=== PATIENT | female | born 1965 | race Caucasian/White ===

== ENCOUNTER 2020-09-02 12:36 | Outpatient (REF) | payer OTHER, SELFPAY ==
[2020-09-02 13:09] LABS: COVID-19 Test Negative (Negative)
== END 2020-09-02 12:37 | disposition home or self-care (01) ==
LOC: HO.LAB 12:36
PROVIDERS: PCP Family Medicine; Visit Provider Internal Medicine
DX: Z20.828 Contact with and (suspected) exposure to other viral communicable diseases (principal)
CPT/HCPCS: 87635; C9803

== ENCOUNTER 2020-09-11 12:25 | Outpatient (REF) | payer OTHER, SELFPAY ==
[2020-09-11 14:04] LABS: COVID-19 Test Negative (Negative); IDNOW Serial# 55D5AD1C
== END 2020-09-11 12:26 | disposition home or self-care (01) ==
LOC: HO.EMPCOV 12:25
PROVIDERS: Visit Provider Internal Medicine
DX: Z20.828 Contact with and (suspected) exposure to other viral communicable diseases (principal)
CPT/HCPCS: 87635; C9803

== ENCOUNTER 2021-04-17 11:42 | Outpatient (REF) | payer BC, SELFPAY ==
[2021-04-17 12:30] LABS: COVID-19 Test Negative (Negative); IDNOW Serial# 9DD0AD1C
== END 2021-04-17 11:43 | disposition home or self-care (01) ==
LOC: HO.LAB 11:42
PROVIDERS: PCP Family Medicine; Referring Provider Internal Medicine; Visit Provider Internal Medicine
DX: Z20.822 Contact with and (suspected) exposure to COVID-19 (principal)
CPT/HCPCS: 36415; 87635

== ENCOUNTER 2023-04-25 12:50 | Outpatient (REF) | payer BC, SELFPAY ==
[2023-04-25 14:01] LABS: Influenza A PCR NEGATIVE (Negative); Influenza B PCR NEGATIVE (Negative); Resp Syncy Virus RNA Qual PCR NEGATIVE (Negative); SARS COV2 PCR INHOUSE NEGATIVE (Negative)
== END 2023-04-25 12:51 | disposition home or self-care (01) ==
LOC: HO.LAB 12:50
PROVIDERS: PCP Family Medicine; Visit Provider Internal Medicine
DX: R09.89 Other specified symptoms and signs involving the circulatory and respiratory systems (principal); Z20.822 Contact with and (suspected) exposure to COVID-19
CPT/HCPCS: 0241U

== ENCOUNTER 2025-08-28 10:01 | Outpatient (AMB) | payer BC, SELFPAY ==
--- OUTSIDE RECORDS SUMMARY | 2024-07-09 05:00 | XMS_ITS ---
Author Organization [facility] melissa Address [address] [place] [address] Care Team Providers Care Obstetric Assistant Name Role Phone Duffy Aline Primary Care Provider Priscila Deepdemetrius Jimenez [phone] Allergies Allergen (clinical drug ingredient) Drug/Non Drug Allergy documented on EMR Reaction Allergy Type Onset Date Status codeine Codeine rash Drug Allergy Active Results Component Value Reference Range Notes Spirometry Reviewed date: Interpretation: Performing Lab: Notes/Report: ekg Reviewed date:07/19/2024 12:30:43 AM Interpretation: Performing Lab: Notes/Report: Heart Rate 65 Systolic Blood Pressure 124 Diastolic Blood Pressure 86 WI Interval 146 QT Interval 396 QTc Interval 404 QRS Duration 80 PWave Sweetser 50 QrsWave Sweetser 52 TWave Sweetser 55 Mean Heart Rate 0 Diastolic Blood Pressure 0 Systolic Blood Pressure 0 MeanRR Interval 0 MinRR Interval 0 MaxRR Interval 0 NumBeats 0 REASON FOR VISIT CPE- fu, due for [...] Active Immunizations Vaccine Route Administration Date [facility] VACC 19+ PFIZER PURCHASED IM Intramuscular 07/09/2024 Administered FLUBLOK PURCHASED IM Intramuscular 07/09/2024 Administered Social History Social History Additional Details Category Social Info Options Details Social History 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8 degrees Fahrenheit 07/09/20 24 Blood pressure systolic 124 mm Hg 07/09/20 24 Blood pressure diastolic 86 mm Hg 024 Height 67.5 in 07/09/2024 Weight 160.7 lbs 07/09/2024 BMI 24.79 kg/m2 07/09/2024 Oximetry 99 07/09/2024 Encounters Encounter Location Date Provider Diagnosis [facility] [address] [place], [place] [address] 07/09/2024 Deep Francois Adult physical SMITHA L [...] Asthma Mild persistent, uncomplicated (ICD-10 - J45.30) Tani reassuring. Symptoms stable. Has Albuterol for [...] the CDC Committee on Immunization Practices. https://www.cdc.gov/vaccines/schedules/downl oads/adult/kxjks-xrplbcsa-kgnumjnh.pdf We encourage exercise as advised by the [...] per ortho team Asthma Mild persistent, uncomplicated Alverda reassuring. Symptoms stable. Has Albuterol for rescue [...] Details Follow Up: 1 Year, Reason: Provider Name:Aline Adams [facility], 10/02/2025 11:45:00 AM, [address], [place], [address], Provider Name:Deep allen, 02/05/2026 12:00:00 PM, [address] , [place], [address], Provider Name:Deep allen, 08/13/2026 01:30:00 PM, [address] [place], [address], History and Physical Notes * HPI (History of Present Illness) Category Sub-Category Detail Notes Category Not es Cardiology PALPITATIONS Previous EKG fr om 2010 was also boderline. Would like to recheck. Gastroenterology ABDOMINAL PAIN CONSTIPATION CHANGE IN BOWEL HABITS COLONOSCOPY 07/20/[address] Sands -no polyps. due 2029 Female Reproductive MAMMOGRAM 07/06/22 at [facility]- kathy monroy. Pending 11/25/24 Currently on higher dose of [...] A ge:59 Y S ex:Female Date:07/09/2024 C #:[id number] [address] [address] [place], [id number] Pcp:Aline Duffy [facility]'s [facility] Subjective: * Chief Complaints: * C PE- fuDue for tani??/masPHQ9: 0PAP: 06/23/21 (NILM, HPV neg)- due 2025MAMMO: 07/06/22- due, has scheduled 11/25/24COLONOSCOPY: 07/20HCP: verified with patientHearing screen: declinesIMMS: flu & [...] F emale Reproductive: c/o MAMMOGRAM 1 at [facility]- normal. P ending 11/25/24. c /o PAP [...] September [address] Jennifer Bhardwaj at [facility] Has been taking M eloxicam for pain [...] HAND: Ant Mai MD GI: GERD/IBS -- [facility] UROLOGY: Amisha Parson -> Bladder dysfunction (nerve damage after high forceps delivery) -- DERM: Jerzy Casey MD, Dysplastic nevi Asthma, mild persistent Dysthymic disorder Basal Cell CA nose (Sep 2023) Restless legs syndrome joint pains - RIGHT foot, LEFT hand/wrist (2023) menopause on HRT mammo (07/04/22 @ [facility]) BI-RADS 1 PAP SMEAR (06/23/2021): NILM, atrophy, HPV neg Colonoscopy (07/20/2020 at [facility]) - normal. Medical History Verified * Surgical History: abd laparoscopy for endometriosis 1996 umbilical hernia repair 2004 two dysplastic nevi Rectocele repair, sling procedure,paraneal repair-/. 10/06/08 PT at [facility] rehab in [place] 2times/wk Basal Cell removal on face - Dr Etienne 10/2023 Surgical History verified. * Hospitalization/Major Diagno stic Procedure: labor Normal Colonoscopy + EGD ([facility] in [facility]) 05/2006 Hospitalization Verified. * Family History: F ather: alive, (lives in [place])prostate cancer. YUNIEL. M other: alive, Crohns and Barretts, HTN (lives in [place] with Ruben's sister, previously [place]) ). dementia 2022. M aternal Grand Father: melanoma. S iblings: sister is horticultural farmer in [place],hx Hep C,hypothyroid. brother in [place] has GERD. C hildren: daughter has asthma, [...] adhd. * Social History: L alek: in [employer] w and 2 sons, 1 daughter. S moking Smart Form A re you a:: nonsmoker. S moking: no . A lcohol: About 3 drinks per wk-glass of wine. M arital Status: . C arnold: Daughter, sons. 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 R eligion: yarsanism. E xercise: yoga class 2-3xweek and home [...] Q RS Duration 80 * P Wave Sweetser 50 * Q rsWave Sweetser 52 * T Wave Sweetser 55 ?Imaging: Treadmill Stress Test Notes: EKG done today, reassuring. Will do stress test. ??3.?Pain foot, right? Notes: Pending RIGHT 1st MTP fusion on 09/03/24, plan per ortho team??4.?Asthma Mild persistent, uncomplicated?LAB: Spirometry Notes: Alverda reassuring. Symptoms stable. Has Albuterol for rescue [...] strongly encourages routine vaccinations as recommended by the[facility] Advisory Committee on Immunization Practices (ACIP). The [...] Procedure Codes: 9 6127 PHQ9 or ADHD [id number] SPIROMETRY,[id number] MOUTHPIECE FOR BREATHING [id number] EKG * Preventive Medicine: Counseling: D iet X . I njury prevention X . E xercise X . S exual practices X . D omestic violence X . S unscreen X . H ealth d iscuss perimenopausal signs and symptoms.? n o risk factors identified. * Follow Up: 1 Year Billing Information: * Visit Code: 80625 Preventive Care Est Pt. Age 40-64. 81533 Office Visit, Established Pt. * Procedure Codes: 25935 PHQ9 or ADHD scale. 37135 SPIROMETRY,COMPLETE. A4617 MOUTHPIECE FOR BREATHING TESTS. 68510 EKG. Care Plan Details* * Electronic signature of Jefferson Francois MD on 08/28/2025 at 11:49 AM EST Sign off status: Pending * Provider: Amisha Francois MD Date: Generated for Mary Anne hackett/Amaya/George on: 10/29/2024 11:49 AM EST
--- OUTSIDE RECORDS SUMMARY | 2025-01-23 06:45 | XMS_ITS ---
Author Organization [facility] melissa Address [address] [place] [address] Care Team Providers Care Warp Dresser Name Role Phone Adriana Duffyherine Primary Care Provider Deep Francois [phone] REASON FOR VISIT f/u meds (doxy) Encounters Encounter Location Date Provider Diagnosis [facility] [address] [place] [address] [place] [address] 01/23/2025 Deep Francois Plan Of Treatment Next Appt Details Provider Name:Aline Adams [facility], 10/02/2025 11:45:00 AM, [address] [place], [address], Provider Name:Deep allen, 02/05/2026 12:00:00 PM, [address] [place], [address], Provider Name:Deep allen, 08/13/2026 01:30:00 PM, [address] [place], [address], Progress Notes * FLORENTIN LARSONOB:1965 ([age] yo F)Acc No.[id number]:01/23/2025 Patient: Marylu SANCHEZSaul RUBEN Provider: Amisha Francois MD :1965 A ge:60 Y S ex:Female Date:01/23/2025 C HN#:[id number] Address:[address] [place] [address], [place] Pcp:Aline Duffy Patient's Default Facility:[facility] Subjective: * Chief Complaints: * F /u meds (doxy) * Electronic signature of Jefferson Francois MD on 08/28/2025 at 11:49 AM EST Sign off status: Pending * Provider: Amisha Francois MD Date: 0 01/23/2025 Generated for Mary Anne hackett/Amaya/Hilarioitting on: 1 10/29/2024 11:49 AM EST
--- OUTSIDE RECORDS SUMMARY | 2025-07-17 06:00 | XMS_ITS ---
Author Organization [facility] melissa Address [address] [place] [address] Care Team Providers Care Pleat Patternmaker Name Role Phone Aline Duffy Primary Care Provider [phone] Deep Francois [phone] REASON FOR VISIT CPE Encounters Encounter Location Date Provider Diagnosis [facility] [address] [address] 07/17/2025 Deep Francois Plan Of Treatment Next Appt Details Provider Name:Aline Adams [facility], 10/02/2025 11:45:00 AM, [address] [place], [address], Provider Name:Deep allen, 02/05/2026 12:00:00 PM, [address] [place], [address], Provider Name:Deep allen, 08/13/2026 01:30:00 PM, [address] [place], [address], Progress Notes * FLORENTIN LARSONOB:1965 ([age] yo F)Acc No.[id number]:07/17/2025 Progress Notes Patient: Marylu CORREA RUBEN Provider: Amisha Francois MD :1965 A ge:60 Y S ex:Female Date:07/17/2025 C HN#:[id number] Address:[address], [place] Pcp:Aline Duffy Patient's Default Facility:[facility] Subjective: * Chief Complaints: * C PE Care Plan Details* * Electronic signature of Jefferson Francois MD on 08/28/2025 at 11:49 AM EST Sign off status: Pending * Provider: Amisha Francois MD Date: 1 Generated for Mary Anne hackett/Amaya/George on: 10/29/2024 11:49 AM EST
--- NOTE | 2025-08-28 10:11 | A.OFFVIS_ITS ---
Vital Signs 08/28/25 10:15 Height 5 ft 8 in Weight 150 lb BMI 22.8 Intake Visit Reasons: Ingrown Rt Great Toenail Intake Note: Herminia is a 60 year old female who presents today as a new patient for an evaluation of her ingrown toe nail of the right hallux. Patient reports this has been going on for about 3 months and finds the site to be painful. Ingrown is located on the lateral border of the hallux. She has tried Epsom salt soaks and trimming the nail and has found no relief for her symptoms. Allergies codeine Allergy (Verified 08/28/25 10:11) Rash HPI Comments Details: The patient is a 60-year-old female with a past medical history as seen below presenting with pain to the right hallux associated with an ingrown toenail. She reports onset of symptoms a few months ago, characterized by discomfort described as something digging into the lateral border of her right hallux. The pain is exacerbated by activity and pressure, particularly from wearing shoes, even those designed to be more accommodating such as [employer] brand shoes. She describes the pain as mild to moderate, worsening upon palpation. The patient has denied any purulent discharge or drainage from the toe. The patient has attempted conservative treatment at home by trimming the nail and soaking it in Epsom salt and warm water, but these measures have not provided relief. She denies any recent pedal injuries. She denies any other pedal concerns. [facility] Medical History (Updated 08/31/25 @ 10:45 by Ivone Reis DPM) Pain of right great toe Cellulitis of great toe, right Nail disorder Ingrowing nail, right great toe Review of Systems Const Details: - Musculoskeletal: Reports pain localized to the lateral aspect of the right hallux. - Integumentary: Reports ingrown toenail to the right hallux. All systems reviewed & are unremarkable except as noted in HPI and below Physical Exam Vital Signs: BMI result Body Mass Index 22.8 Extrem Other: Right lower extremity focused physical exam: Derm: Increase incurvation noted to the lateral border of the right hallucal nail consistent with an ingrown toenail. No active drainage, purulence, or bleeding noted. Remaining toenails within normal limits. No maceration or hyperkeratotic areas noted. No erythema or discoloration noted. No clinical signs of infection noted. Vascular: DP/PT pulses palpable. Capillary refill time less than 3 seconds. Temperature gradient warm to warm. No varicosities noted. Mild edema noted to the right hallux. Neuro: Protective sensation is grossly intact. MSK: Pain on palpation to the lateral border of the right hallux due to ingrown nail. Range of motion of the forefoot, hindfoot, and ankle within normal limits. No crepitus or fluctuance noted. Mildly antalgic gait unassisted noted. No other gross abnormalities noted. Office Procedures AMB Debridement/Avulsion Podia Details: Procedure: Right hallux partial nail avulsion of the lateral border Cleansed right hallux with alcohol swab and injected 10cc of 2%lidocaine plain in a hallux block fashion. Next applied a tourniquet to the right hallux and then cleansed the right hallux with Betadine. Attention was drawn to the lateral border of the right hallux and a Ossian was utilized to free the offending nail border from the nail bed. Next an Wolof anvil was utilized to trim and cut the offending nail border and a hemostat was used to remove the offending nail border completely. A curette was used to ensure all spicules of the nail were re moved from the nail bed. Triple antibiotic ointment, 2 x 2 gauze, and Coban was then applied to the right hallux. Procedure was done with no incidents. Provided patient with aftercare instructions. [address]75[address] Partial/Total nail avulsion (1 nail) Procedure code (CPT) selection complete Office Meds lidocaine HCl 10 mg/mL (1 %) injection solution Performing Provider: Ivone Reis DPM Performing Location: [facility] Administered by: Ivone Reis DPM on 08/31/25 10:46 Dose Route Admin Location Dispensed Lot Number Expiration Date [facility] Manager Process Excellence 10 mL subcut 10 mL 3214-2277-43 Total Dispensed Waste 10 mL 0 % Comments: 2% lidocaine plain used Triple Antibiotic 3.5 mg-400 unit-5,000 unit topical ointment packet Performing Provider: Ivone Reis DPM Performing Location: [facility] Administered by: Ivone Reis DPM on 08/31/25 10:46 Dose Route Admin Location Dispensed Lot Number Expiration Date [facility] Manager [employer] Excellence 1 appl topical 1 appl [id number] PADAGIS povidone-iodine 10 % topical swab Performing Provider: Ivone Reis DPM Performing Location: [facility] Administered by: Ivone Reis DPM on 08/31/25 10:46 Dose Route Admin Location Dispensed Lot Number Expiration Date [facility] Manager Process Excellence 1 appl topical 1 appl [id number] [employer] IND [place]. ethyl chloride 100 % topical spray Performing Provider: Ivone Reis DPM Performing Location: [facility] Administered by: Ivone Reis DPM on 08/31/25 10:46 Dose Route Admin Location Dispensed Lot Number Expiration Date [facility] Manager Process Excellence 1 appl topical 116 mL [id number] [employer]. Assessment & Plan Assessment & Plan (1) Ingrowing nail, right great toe: Code(s): L60.0 - Ingrowing nail Category: Medical (2) Nail disorder: Code(s): L60.9 - Nail disorder, unspecified Category: Medical (3) Cellulitis of great toe, right: Code(s): L03.031 - Cellulitis of right toe Category: Medical (4) Pain of right great toe: Code(s): M79.674 - Pain in right toe(s) Category: Medical Plan Patient was informed and verbally consented to the use of an ambient scribe for clinic note documentation during this visit. I reviewed the diagnosis of an ingrown toenail on the lateral border of the right hallux with the patient and detailed the planned procedure of nail avulsion. Aftercare instructions were discussed, emphasizing keeping the initial bandage on for 24 hours, followed by daily Epsom salt water soaks, application of Neosporin, and rebandaging. We discussed the absence of activity restrictions, and the patient agreed to proceed. - Performed a partial nail avulsion on the lateral border of the right hallux to address the ingrown toenail. - Provided patient with aftercare instructions, instructional form provided. - Patient is to wear shoes with a wide toe box and avoid tight-fitting shoes. - Patient is to avoid barefoot walking. - Patient is to monitor for any signs of infection. RTC in 2 weeks. Orders: Orders AMB Debridement/Avulsion Podiatry 08/28/25 L03.031 - Cellulitis of right toe, L60.0 - Ingrowing nail, L60.9 - Nail disorder, unspecified, M79.674 - Pain in right toe(s) Medications: Discontinued penicillin V potassium Discontinued Reason: Patient no longer taking 500 mg PO TID 10 days 30 tabs 0RF cyclobenzaprine Discontinued Reason: Patient no longer taking 5 mg PO TID PRN 30 tabs 0RF muscle spasm Coding Level of Care Code New Pt Level 4 (38254) Diagnoses Ingrowing nail, right great toe L60.0 Nail disorder L60.9 Cellulitis of great toe, right L03.031 Pain of right great toe M79.674 CPT Codes Skin Debridement - CPT: 27927 Partial/Total nail avulsion (1 nail) ([id number]) Time Spent (min) 65 Comment 20 mins for procedure
[2025-08-28 10:15] VITALS: BMI 22.8
--- OUTSIDE RECORDS SUMMARY | 2025-08-28 11:49 | XMS_ITS | Encounter Summary ---
Author Organization [facility] Address [address] [facility] [address] [place] [address] Phone Care Team Providers Care Isolation Washer Name Role Phone Aline Duffy MD Unavailable [phone] Aline Duffy MD Primary Care Provider + Deep Francois MD Primary Care Provider + [phone] Encounter Details Date Type Department Care Team (Late st Contact Info) Description 06/20/2024 Procedure Pass [facility] - [address] [place] [address] Social History Tobacco Use Types Packs/Day Years Used Date Smoking Tobacco: Never Alcohol Use Standard Drinks/Week Comments Not Currently 0 (1 standard drink = 0.6 oz pur e alcohol) Education Answer Date Recorded Are you interested in more education? Not on zoe e 01/20/2023 Are you concerned about learning? Not on file 01/20/2023 No 01/20/2023 No 01/20/2023 Digital Access Answer Date Recorded No 02/20/2023 No 02/20/2023 Reliable internet access at home? Not on file 02/20/2023 Device with a working camera? Not on file Comments No Sex and Gender Information Value Date Recorded Sex Assigned at Female 07/04/2022 7:14 AM EDT Legal Sex Female 9:40 PM EDT Gender Identity Female 07/04/2022 7:14 AM EDT Sexual Orientation Not on file documented as of this encounter Plan of Treatment Not on file documented as of this encounter Visit Diagnoses Not on filedocumented in this encounter Care Teams Isolation Washer Relationship Specialty Start Date End Date Aline Duffy MD [address] [place] [phone] [email or web address] PCP - General Family Medicine 03/15/19 11/24/24 Deep Francois MD [address] [place] [phone] [email or web address] PCP - General Family Medicine 11/25/24 Aline Duffy MD [address] [place] [address] [email or web address] Assigned Provider 12/30/23 documented as of this encounter Additional Source Comments The information contained in this document represents components of the legal health record. It is not the complete legal health record.[facility]
--- OUTSIDE RECORDS SUMMARY | 2025-08-28 11:49 | XMS_ITS | Encounter Summary ---
Author Organization [facility] Address [address] [facility] [address] [place] [address] Phone Care Team Providers Care Vp Cardiovascular Service Line Name Role Phone Aline Duffy MD Unavailable [phone] Aline Duffy MD Primary Care Provider + Deep Francois MD Primary Care Provider + [phone] Encounter Details Date Type Department Care Team (Late st Contact Info) Description 06/29/2022 Transcribe Orders Virtual Department [address] [place] [address] Deep Francois MD [address] [place] [phone] Generalized abdominal or pelvic swelling or mass or lump (Primary Dx) Social History Tobacco Use Types Packs/Day Years Used Date Smoking Tobacco: Never Assessed Comments No Sex and Gender Information Value Date Recorded Sex Assigned at Female 07/04/2022 7:14 AM EDT Legal Sex Female 9:40 PM EDT Gender Identity Female 07/04/2022 7:14 AM EDT Sexual Orientation Not on file documented as of this encounter Plan of Treatment Not on file documented as of this encounter Results * US ABDOMEN COMPLETE (ADULT) (07/11/2022 10:22 AM EDT) Anatomical Region Laterality Modality Abdomen Ultrasound 07/11/2022 10:5 7 AM EDT Impressions 07/11/2022 10:58 AM EDT Unremarkable abdominal ultrasound. No aortic aneurysm visualized. No intra-abdominal masses are seen. Narrative 07/11/2022 10:58 AM EDT US ABDOMEN COMPLETE (ADULT) TECHNIQUE: Abdominal Ultrasound Complete. COMPARISON: None FINDINGS: Liver: Normal. No focal lesions. Main Portal Vein: Patent with normal direction of flow. Gallbladder: Normal. No gallstones or gallbladder wall thickening. Biliary: Normal. No intrahepatic or extrahepatic biliary ductal dilatation. The common bile duct measures 5 mm. Pancreas: Incompletely visualized. Spleen: Normal. No splenomegaly. Kidneys: Normal. No stones or hydronephrosis. Aorta: No aortic aneurysm visualized. IVC: Normal intrahepatic segment. Procedure Note Nir Diop MD, YAEL - 07/11/2022 US ABDOMEN COMPLETE (ADULT) TECHNIQUE: Abdominal Ultrasound Complete. COMPARISON: None FINDINGS: Liver: Normal. No focal lesions. Main Portal Vein: Patent with normal direction of flow. Gallbladder: Normal. No gallstones or gallbladder wall thickening. Biliary: Normal. No intrahepatic or extrahepatic biliary ductaldilatation. The common bile duct measures 5 mm. Pancreas: Incompletely visualized. Spleen: Normal. No splenomegaly. Kidneys: Normal. No stones or hydronephrosis. Aorta: No aortic aneurysm visualized. IVC: Normal intrahepatic segment. IMPRESSION: Unremarkable abdominal ultrasound. No aortic aneurysm visualized. No intra-abdominal masses are seen. Deep Francois MD IMG US ABDOMEN Final Result documented in this encounter Visit Diagnoses Diagnosis Generalized abdominal or pelvic swelling or mass or lump- Primary Abdominal or pelvic swelling, mass, or lump, generalized Generalized abdominal or pelvic swelling or mass or lump Abdominal or pelvic swelling, mass, or lump, generalized documented in this encounter Care Teams Vp Cardiovascular Service Line Relationship Specialty Start Date End Date Aline Duffy MD [address] [place] [phone] [email or web address] PCP - General Family Medicine 03/15/19 11/24/24 Deep Francois MD [address] [place] [phone] [email or web address] PCP - General Family Medicine 11/25/24 Aline Duffy MD [address] [place] [address] [email or web address] Insurance Assigned Provider 12/30/23 documented as of this encounter Additional Source Comments The information contained in this document represents components of the legal health record. It is not the complete legal health record.[facility]
--- OUTSIDE RECORDS SUMMARY | 2025-08-28 11:49 | XMS_ITS | Clinical Summary ---
Author Organization [facility] Address [address] [facility] [address] [place] [address] Phone Care Team Providers Care Sap Abap Developer Name Role Phone Aline Duffy MD Unavailable [phone] Deep Francois MD Primary Care Provider + [phone] Allergies Active Allergy Reactions Criticality Noted Date Comments Codeine Rash Low 11/14/2024 Medications acetaminophen (TYLENOL) 500 MG tablet Take 500 mg by mouth as needed. 09/03/2024 Active DULoxetine (CYMBALTA) 20 MG capsule Take 1 capsule by mouth every morning. 09/05/2024 Active levothyroxine (SYNTHROID, LEVOTHROID) 150 MCG tablet Take 150 mcg by mouth daily. Active montelukast (SINGULAIR) 10 mg tablet Take 10 mg by mouth every evening. Active progesterone (PROMETRIUM) 100 mg capsule Take 100 mg by mouth nightly at bedtime. Active estradioL (VIVELLE-DOT) 0.05 mg/[address] 1 patch onto the skin 2 (two) times a week. 10/06/2024 Active Active Problems No known active problems Family History Medical History Relation Comments BRCA 1/2 Mother Breast cancer Mother Breast cancer Sister Relation Status Comments Mother Sister Social History Tobacco Use Types Packs/Day Years Used Date Smoking Tobacco: Never Tobacco Cessation:Counseling Given: Not Answered Alcohol Use Standard Drinks/Week Comments Not Currently [...] AM EDT Sexual Orientation Not on file Last Filed Vital Signs Vital Sign Reading Time Taken Comments Blood Pressure 126/88 11/14/2024 1:22 PM EST Pulse 75 11/14/2024 1:22 PM EST Temperature - - Respiratory Rate - - Oxygen Saturation 99% 11/14/2024 1:22 PM EST Inhaled Oxygen Concentration - - Weight 73.5 kg (162 lb) 11/14/2024 1:22 PM EST Height 172.1 cm (5' 7.76 ) 11/14/2024 1:22 PM ES T Body Mass Index 24.81 11/14/2024 1:22 PM EST Plan of Treatment Health Maintenance Due Date Last Done Comments DEPRESSION SCREENING 1978 HEPATITIS C SCREENING 01/08/1984 HIV ONE-TIME SCREENING (18-6 5 YEARS) 01/08/1984 PAP SMEAR 1987 COLOGUARD 2011 FIT TEST 2011 FOBT 2011 SIGMOIDOSCOPY 2011 VIRTUAL COLONOSCOPY 2011 PNEUMOCOCCAL VACCINES (50+ years) (1 of 1 - PCV) 01/08/2016 ZOSTER VACCINES (1 of 2) 01/08/2016 TSH LEVEL 03/15/2025 03/15/2024, 11/02/2020 INFLUENZA VACCINE (#1) 2025 , 08/01/2017 COVID-19 VACCINE (3 - 2024-2 6 season) 2025 10/03/2020, 09/12/2020 MAMMOGRAM 11/25/2026 11/25/2024, 07/04/2022, 03/15/2019 LIPID PANEL 07/04/2028 07/04/2023 Adult Td,Tdap Booster 02/04/2029 02/04/2019 COLONOSCOPY 07/20/2030 11/17/2020 COLORECTAL CANCER SCREENING 07/20/2030 RSV VACCINE (1 - 1-dose 75+ series) 2041 SMOKING STATUS SCREENING (On ce After 26 Yrs) Completed 11/25/2024 HEPATITIS A VACCINES Aged Out No long er eligible based on patient's age to complete this topic HIB VACCINES Aged Out No longer eligi ble based on patient's age to complete this topic MENINGOCOCCAL VACCINES (ACWY) Aged Out No longer eligible based on patient's age to complete this topic MENINGOCOCCAL VACCINES (B) Aged Out N o longer eligible based on patient's age to complete this topic Medical Devices Not on file Procedures Procedure Name Priority Date/Time Associated Diagnosis Comments BI MAMMOGRAM SCREENING WITH TOMOSYNTHESIS WITH CAD (BILATERAL) Routine 11/25/2024 11:12 AM EST Breast screening TSH WITH REFLEX Routine 03/15/2024 1:04 PM EDT Generalized hyperhidrosis HM COLONOSCOPY FOR RESULT ENTRY ONLY Routine 11/17/2020 from Last 3 Months or Most Recently Relevant to Health Maintenance Results * BI MAMMOGRAM SCREENING WITH TOMOSYNTHESIS WITH CAD (BILATERAL) (11/25/2024 11:12 AM EST) Anatomical Region Laterality Modality Breast Left, Breast Right, Breast Bilateral Bila teral Mammography 11/27/2024 6:47 AM EST Impressions 11/27/2024 6:49 AM EST No mammographic evidence of malignancy in either breast. Annual screening mammography is recommended. BI-RADS 1 NEGATIVE The patient will be notified of the results and recommendations. Narrative 11/27/2024 6:49 AM EST BI MAMMOGRAM SCREENING WITH TOMOSYNTHESIS WITH CAD (BILATERAL) Additional patient information: Screening. COMPARISON: Comparison is made with relevant prior imaging. Breast composition: The breast tissue is heterogeneously dense which may obscure small masses. FINDINGS: No abnormal masses, suspicious calcifications, or other significant findings are identified mammographically in either breast. There has been no significant interval change. Procedure Note Leah Burns MD - 11/27/2024 BI MAMMOGRAM SCREENING WITH TOMOSYNTHESIS WITH CAD (BILATERAL) Additional patient information: Screening. COMPARISON: Comparison is made with relevant prior imaging. Breast composition: The breast tissue is heterogeneously dense which mayobscure small masses. FINDINGS: No abnormal masses, suspicious calcifications, or other significantfindings are identified mammographically in either breast. There has been no significant interval change. IMPRESSION: No mammographic evidence of malignancy in either breast. Annual screening mammography is recommended. BI-RADS 1 NEGATIVE The patient will be notified of the results and recommendations. us Deep Francois MD IMG MG EXAMS Final Result * TSH with reflex (03/15/2024 1:04 PM EDT) TSH 3.14 0.27 - 4.20 uIU/mL [facility] Blood 03/15/2024 1:04 PM EDT 03/15/2024 1:09 PM EDT [facility] BLOOD BKR ORDERABLES Final Result [facility] [address] [place], [place] [id number] * COLONOSCOPY FOR RESULT ENTRY ONLY (11/17/2020) Colonoscopy External us Historical Provider HEALTH MAINTENANCE Final Result from Last 3 Months or Most Recently Relevant to Health Maintenance Insurance [facility] [place] [id number] [facility] [address] [place] [id number] [place] [id number] Care Teams Sap Abap Developer Relationship Specialty Start Date End Date Deep Francois MD [address] [place] [phone] [email or web address] PCP - General Family Medicine 11/25/24 Aline Duffy MD [address] [place] [phone] Insurance Assigned Provider 12/30/23 Additional Source Comments The information contained in this document represents components of the legal health record. It is not the complete legal health record.[facility]
--- OUTSIDE RECORDS SUMMARY | 2025-08-28 11:49 | XMS_ITS | Encounter Summary ---
Author Organization [facility] Address [address] [facility] [address] [place] [address] Phone Care Team Providers Care Construction Technician Name Role Phone Aline Duffy MD Unavailable [phone] Aline Duffy MD Primary Care Provider + Deep Francois MD Primary Care Provider + [phone] Encounter Details Date Type Department Care Team (Late st Contact Info) Description 10/19/2020 Transcribe Orders Virtual Department [address] [place] [address] Aline Duffy MD [address] [place] [phone] Menorrhagia with regular cycle (Primary Dx) Social History Tobacco Use Types [...] as of this encounter Results * US PELVIS TRANSABDOMINAL PLUS TRANSVAGINAL (11/02/2020 2:35 PM EST) Anatomical Region Laterality Modality Pelvis, Uterus/Adnexa Ultrasound 11/02/2020 3:08 PM EST Impressions 11/02/2020 3:11 PM EST 1.Chronic uterine fibroid. 2.Normal ovaries and endometrium. Narrative 11/02/2020 3:11 PM EST COMPARISON: 08/06/2020. PELVIC & ENDOVAGINAL ULTRASOUND FINDINGS: Uterus: Uterus measures 7.5 x 3.2 x 7.2 cm. Endometrial thickness of 2 mm. No polyps identified. Chronic right subserosal uterine fibroid measuring 3.2 x 2.5 x 3 cm. Ovaries: Right ovarian volume of 4 cc and left ovarian volume of 2 cc. Normal ovarian perfusion. No adnexal masses. No free fluid in the cul-de-sac. Duplex scan of ovarian blood flow visualization with utilization of color and spectral doppler. Procedure Note Gaurav Reid MD - 11/02/2020 COMPARISON: 08/06/2020. PELVIC & ENDOVAGINAL ULTRASOUND FINDINGS: Uterus: Uterus measures 7.5 x 3.2 x 7.2 cm. Endometrial thickness of 2mm. No polyps identified. Chronic right subserosal uterine fibroidmeasuring 3.2 x 2.5 x 3 cm. Ovaries: Right ovarian volume of 4 cc and left ovarian volume of 2 cc.Normal ovarian perfusion. No adnexal masses. No free fluid in [id number]. Duplex scan of ovarian blood flow visualization withutilization of color and spectral doppler. IMPRESSION: 1.Chronic uterine fibroid. 2.Normal ovaries and endometrium. us Aline Duffy MD IMG US PELVIS Final Re sult documented in this encounter Visit Diagnoses Diagnosis Menorrhagia with regular cycle- Primary Menorrhagia with regular cycle documented in this encounter Care Teams Construction Technician Relationship Specialty Start Date End Date Aline Duffy MD [address] [place] [phone] PCP - General Family Medicine 03/15/19 11/24/24 Deep Francois MD [address] [place] [phone] [email or web address] PCP - General Family Medicine 11/25/24 Aline Duffy MD [address] [place] [phone] [email or web address] Insurance Assigned Provider 12/30/23 documented as of this encounter Additional Source Comments The information contained in this document represents components of the legal health record. It is not the complete legal health record.[facility]
--- OUTSIDE RECORDS SUMMARY | 2025-08-28 11:49 | XMS_ITS | Encounter Summary ---
Author Organization [facility] Address [address] [facility] [facility] [address] [place] [address] Phone Care Team Providers Care Faro Dealer Name Role Phone Aline Duffy MD Unavailable [phone] Aline Duffy MD Primary Care Provider + Deep Francois MD Primary Care Provider + [phone] Encounter Details Date Type Department Care Team (Late st Contact Info) Description 06/24/2022 Procedure Pass [address] [place] [address] Social History Tobacco Use Types Packs/Day Years Used Date Smoking Tobacco: Never Alcohol Use Standard Drinks/Week Comments Not Currently 0 (1 standard drink = 0.6 oz pur e alcohol) Comments No Sex and Gender Information Value Date Recorded Sex Assigned at Female 07/04/2022 7:14 AM EDT Legal Sex Female 9:40 PM EDT Gender Identity Female 07/04/2022 7:14 AM EDT Sexual Orientation Not on file documented as of this encounter Plan of Treatment Not on file documented as of this encounter Visit Diagnoses Not on filedocumented in this encounter Care Teams Faro Dealer Relationship Specialty Start Date End Date Aline Duffy MD [address] [place] [phone] [email or web address] PCP - General Family Medicine 03/15/19 11/24/24 Deep Francois MD [address] [place] [phone] [email or web address] PCP - General Family Medicine 11/25/24 Aline Duffy MD [address] [place] [phone] [email or web address] Insurance Assigned Provider 12/30/23 documented as of this encounter Additional Source Comments The information contained in this document represents components of the legal health record. It is not the complete legal health record.[facility]
--- OUTSIDE RECORDS SUMMARY | 2025-08-28 11:49 | XMS_ITS | Encounter Summary ---
Author Organization [facility] Address [address] [facility] [address] [place] [address] Phone Care Team Providers Care Cyber Forensics Analyst Name Role Phone Aline Duffy MD Unavailable [phone] Aline Duffy MD Primary Care Provider + Deep Francois MD Primary Care Provider [phone] Encounter Details Date Type Department Care Team (Late st Contact Info) Description 06/21/2021 Transcribe Orders [facility] [address] [place] [address] [place] [address] Deep Francois MD [address] [place] [phone] Social History Tobacco Use Types Packs/Day Years [...] on filedocumented in this encounter Care Teams Cyber Forensics Analyst Relationship Specialty Start Date End Date Aline Duffy MD [address] [place] [phone] PCP - General Family Medicine 03/15/19 11/24/24 Deep Francois MD [address] [place] [phone] [email or web address] PCP - General Family Medicine 11/25/24 Aline Duffy MD [address] [place] [phone] [email or web address] Insurance Assigned Provider 12/30/23 documented as of this encounter Additional Source Comments The information contained in this document represents components of the legal health record. It is not the complete legal health record.[facility]
--- OUTSIDE RECORDS SUMMARY | 2025-08-28 11:49 | XMS_ITS | Encounter Summary ---
Author Organization [facility] Address [address] [facility] [address] [place] [address] Phone Care Team Providers Care Handle Sewer Name Role Phone Aline Duffy MD Unavailable [phone] Aline Duffy MD Primary Care Provider + Deep Francois MD Primary Care Provider [phone] Encounter Details Date Type Department Care Team (Late st Contact Info) Description 06/17/2021 Transcribe Orders Virtual Department [address] [place] [address] Deep Francois MD [address] [place] [phone] [email or web address] Encounter for screening mammogram for malignant neoplasm of breast (Primary Dx) Social History Tobacco Use Types [...] documented as of this encounter Visit Diagnoses Diagnosis Encounter for screening mammogram for malignant neoplasm of breast- Primary documented in this encounter Care Teams Handle Sewer Relationship Specialty Start Date End Date Aline Duffy MD [address] [place] [address] [email or web address] PCP - General Family Medicine 03/15/19 11/24/24 Deep Francois MD [address] [place] [phone] [email or web address] PCP - General Family Medicine 11/25/24 Aline Duffy MD [address] [place] [phone] [email or web address] Insurance Assigned Provider 12/30/23 documented as of this encounter Additional Source Comments The information contained in this document represents components of the legal health record. It is not the complete legal health record.[facility]
--- OUTSIDE RECORDS SUMMARY | 2025-08-28 11:50 | XMS_ITS | Encounter Summary ---
Author Organization [facility] Address [address] [facility] [address] [place] [address] Phone Care Team Providers Care Monument Carver Name Role Phone Aline Duffy MD Unavailable [phone] Aline Duffy MD Primary Care Provider + Deep Francois MD Primary Care Provider + [phone] Encounter Details Date Type Department Care Team (Late st Contact Info) Description 06/20/2024 Transcribe Orders Virtual Department [address] [place] [address] Deep Francois MD [address] [place] [phone] [email or web address] Breast screening (Primary Dx) Social History Tobacco Use Types [...] documented as of this encounter Results * BI MAMMOGRAM SCREENING WITH TOMOSYNTHESIS [...] be notified of the results and recommendations. Deep Francois MD IMG MG EXAMS Final Result documented in this encounter Visit Diagnoses Diagnosis Breast screening- Primary Breast screening, unspecified Breast screening Breast screening, unspecified documented in this encounter Care Teams Monument Carver Relationship Specialty Start Date End Date Aline Duffy MD [address] [place] [phone] [email or web address] PCP - General Family Medicine 03/15/19 11/24/24 Deep Francois MD [address] [place] [phone] PCP - General Family Medicine 11/25/24 Aline Duffy MD [address] [place] [phone] [email or web address] Insurance Assigned Provider 12/30/23 documented as of this encounter Additional Source Comments The information contained in this document represents components of the legal health record. It is not the complete legal health record.[facility]
--- OUTSIDE RECORDS SUMMARY | 2025-08-28 11:50 | XMS_ITS | Patient Health Record ---
[facility] Organization [facility] melissa Address [address] [place] [address] Care Team Providers Care Clinical Physician Assistant Name Role Phone Aline Duffy Primary Care Provider [phone] Deep Francois Unavailable [phone] BeccaRock ramirez Unavailable [phone] Allergies Allergen (clinical drug ingredient) Drug/Non Drug Allergy documented on EMR Reaction Allergy Type Onset Date Status codeine Codeine rash Drug Allergy Active Results Component Value Reference Range Notes BI MAMMOGRAM SCREENING WITH TOMOSYNTHESIS WITH CAD (BILATERAL) Reviewed date:11/28/2024 04:58:23 PM Interpretation: Performing Lab: Notes/Report: BI MAMMOGRAM SCREENING WITH TOMOSYNTHESIS WITH CAD [...] be notified of the results and recommendations. Interpreted by: Leah Burns MD Signed by: Leah Burns MD 11/27/24 Final result No new concerns. Previous screening 07/04/2022 BI-RADS 1. [facility] Reason For Referral Reason Skin check Diagnosis 1 Encounter for screen ing for malignant neoplasm of skin (Z12.83) Referral Organization [facility] Pr actice Referring Provider First Name Deep Referring Provider Last Name Priscila Referring Provider Speciality [facility] Pra ctice Referred Provider Arun Zavala Referred Provider Specialty Dermatology General Notes Acacia Go 01/24 02:15:10 PM > referral faxed to: [phone], Authorization Status: CompleteReason: Decisioned, Decision: ApprovedReference#: [id number], Procedure Status: [id number]:Approved Clinical Notes Provider Name: Arun Rivera, Provider ID Number: , Provider UPIN: use Dr Casey's NPI, Provider , Provider Facility: , Provider Speciality: Dermatology, Address1: [address] [place] [address], Address2: [facility], Zip: [place], [address], , Appt. Date/Time: , Referral Priority Routine Reason mohs procedure Dr. Rafa Barbosa, Diagnosis 1 Basal cell carcinoma of skin of other part of trunk (C44.519) Referral Organization [facility] actice Referring Provider First Name Deep Referring Provider Last Name Adititiffany [facility] Referred Provider YULIYA SIMPSON General Notes Acacia Go 12/24 07:39:17 AM > referral faxed to: [phone], Authorization Status: CompleteReason: Decisioned, Decision: ApprovedReference#: [id number], Procedure Status: [id number]:Approved Clinical Notes Provider Name: [facility], Provider ID Number: , Provider UPIN: Reg/Sched, Provider NPI: , Provider Facility: , Provider Speciality: , Address1: [address] [place] [address], Address2: [address], [facility], Zip: [place], [address], , Appt. Date/Time: , Referral Priority Routine Reason For mohs surgery [facility] Dr. Glenis Etienne, Diagnosis 1 Basal cell carcinoma of skin of other part of trunk (C44.519) Referral Organization [facility] actice Referring Provider First Name Deep Referring Provider Last Name Priscila Referring Provider [facility] Referred Provider Specialty Dermatology General Notes Dr. Glenis Etienne, , [facility], [facility], [address] [place] [address], [address], [place], [place], phone: [phone], fax: [phone], Acacia Go 02/06/2025 08:32:50 AM > referral faxed to: [phone], Authorization Status: CompleteReason: Decisioned, Decision: ApprovedReference#: [id number], Procedure Status: [id number]:Approved Referral Priority Routine Reason For Ingrown Right Gr eat toenail Please fax back appropriate NPI needed to obtain an insurance auth Diagnosis 1 Ingrown toenail (L60 .0) Referral Organization [facility] Riaz robledo Referring Provider First Name Deep Referring Provider Last Name Priscila Referring Provider [facility] chuck Referred Provider [facility] Pod[facility], [place] Referred Provider Specialty Podiatry General Notes ingrown right great toenail and I would like to go to Dr. Ivone Reis at [facility] podiatry, Acacia Go 08/19/2025 08:59:37 AM EST > ref faxed to: [phone] Clinical Notes Name [facility] Podiatry, [facility], Address [address] [place] [address], [address], [place] [address], Referral Priority Routine Reason For a skin check zachary Gonzalez, , bCBS auth code: [id number] Diagnosis 1 Encounter for screen ing for malignant neoplasm of skin (Z12.83) Referral Organization [facility] Riaz actsvitlana Referring Provider First Name Deep Referring Provider Last Name Priscila Referring Provider [facility] ctsvitlana Referred Provider Deborah Finch atjake Referred Provider Specialty Dermatology General Notes Authorization Status : CompleteReason: Decisioned, Decision: ApprovedReference#: [id number], Procedure Status: [id number]:Approved, Acacia Go 08/26/2025 11:19:42 AM EST > ref faxed to: [phone] Referral Priority Routine Medications Medication SIG (Take, Route, Frequency, Duration) Notes Start Date End Date Status Cyclobenzaprine HCl 5 MG Tablet 1 tab(s) orally 3 times a day; Duration: 5 days prn Active Vitamin D 2000 IU 1 TAB PO QD Active Levothyroxine Sodium 150 MCG Tablet 1 tab(s) orally once a day; Duration: 90 days Active Singulair 10 MG Tablet 1 tablet Orally O nce a day in the evening; Duration: 90 days Active Diclofenac Sodium 1 % Gel as directed applied topically 4 times a day as needed; Duration: 30 days Not-Taking/PRN Estradiol 0.1 MG/GM Cream as directed Vaginal 3 times per week; Duration: 30 days 1 g nightly x 2 weeks, then 2-3 x per week 07/09/2024 Active Progesterone 100 MG Capsule 1 cap(s) orally once a day (at bedtime); Duration: 90 days Active DULoxetine HCl 20 MG Capsule Delayed Release Particles 1 capsule Orally Once a day; Duration: 90 days Active Estradiol 0.05 MG/24HR Patch Twice Weekly 1 patch to skin Transdermal Two times a Week; Duration: 84 days Active Immunizations Vaccine Route Administration Date Status Comme nts COVID HISTORY VACC 12+ PFIZER COMIRNATY Unknown 10/13/2023 Administered COVID HISTORY VACC 12+ PFIZER COMIRNATY Unknown 06/22/2025 Administered COVID VACC 19+ PFIZER PURCHASED IM Intramuscular 07/09/2024 Administered COVID Vacc BIVALENT 12+ Pfizer IM Intramuscular 06/22/2022 Administered Covid Vaccine Booster (Animeeple), History Unknown 07/03/2021 Administered COVID-19 Vaccine (Animeeple), History Unknown 09/12/2020 Administered COVID-19 Vaccine (Animeeple), History Unknown 10/03/2020 Administered Flu Vaccine; History Unknown 05/26/2010 Administered Flu Vaccine; History Unknown 07/13/2011 Administered Flu Vaccine; History Unknown 07/31/2012 Administered Flu Vaccine; History Unknown 06/25/2013 Administered FLUBLOK PURCHASED IM Intramuscular 07/20/2018 Administered FLUBLOK PURCHASED IM Intramuscular 06/22/2022 Administered FLUBLOK PURCHASED IM Intramuscular 07/09/2024 Administered FLUBLOK PURCHASED IM Intramuscular 07/31/2025 Administered FLULAVAL PURCHASED IM Intramuscular 06/17/2021 Administere d Fluzone P, PF, pre-filled IM Intramuscular 06/02/2016 Administered FLUZONE PURCHASED IM Intramuscular 07/04/2023 Administered Fluzone Vaccine; History IM Intramuscular 09/25/2008 Administered H1N1 injection, history IM Intramuscular 07/24/2009 Administered Hepatitis B Vaccine; History Unknown 08/30/1994 Administered Hepatitis B Vaccine; History Unknown 10/07/1994 Administered Hepatitis B Vaccine; History Unknown 02/28/1995 Administered MMR,state Unknown 05/05/1983 Administered PNEUMOVAX 23 PURCHASED IM Intramuscular 10/14/2010 Administered office purchase d pneumovax vaccine PREVNAR 20 PURCHASED IM Intramuscular 07/31/2025 Administered Refusal, Td/Tdap vaccine Unknown 10/20/2011 Administered is going to [facility] to see if it was given at her office, signed refusal Refusal, Td/Tdap vaccine Unknown 11/06/2013 Administered is going to [facility] to see if it was given at her office, signed refusal Shingrix, history Unknown 12/01/2022 Administered Shingrix, history Unknown 06/22/2025 Administered Td vaccine, state Unknown 02/23/1993 Administered Td vaccine, state Unknown 09/25/2001 Administered Tdap Adacel,purchased IM Intramuscular 09/23/2009 Administered TDAP history Unknown 01/28/2019 Administered Social History Social History Additional Details Category Social Info Options Details Social History 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 Alcohol: About 3 drinks p er wk-glass of wine Sexually active: no problems Exercise: yoga class 2-3xweek and home program, rides horse 3x weekly hikes 1-2x week or swims regularly Marital Status: Children: Daughter, sons Pets: Dogs: Confucianist: congregational lives in [facility] and and 2 sons, 1 daughter Section Notes: dog w seizure disorder healthy diet fun--likes swimming,hiking,horsebackriding enjoys reading dog w seizure disorder dog w seizure disorder dog w seizure disorder dog w seizure disorder dog w seizure disorder huge stressors dog w seizure disorder dog w seizure disorder dog w seizure disorder dog w seizure disorder dog w seizure disorder dog w seizure disorder dog w seizure disorder dog w seizure disorder dog w seizure disorder dog w seizure disorder dog w seizure disorder dog w seizure disorder dog w seizure disorder dog w seizure disorder huge stressors huge stressors huge stressors dog w seizure disorder dog w seizure disorder dog w seizure disorder dog w seizure disorder dog w seizure disorder dog w seizure disorder dog w seizure disorder healthy diet fun--likes swimming,hiking,horsebackriding --cant do those things now enjoys reading dog w seizure disorder dog w seizure disorder dog w seizure disorder dog w seizure disorder dog w seizure disorder dog w seizure disorder healthy diet fun--likes swimming,hiking,horsebackriding --cant do those things now enjoys reading healthy diet fun--likes swimming,hiking,horsebackriding --cant do those things now enjoys reading healthy diet fun--likes swimming,hiking,horsebackriding --cant do those things now enjoys reading healthy diet fun--likes swimming,hiking,horsebackriding --cant do those things now enjoys reading dog w seizure disorder healthy diet fun--likes swimming,hiking,horsebackriding --cant do those things now enjoys reading dog w seizure disorder healthy diet fun--likes swimming,hiking,horsebackriding --cant do those things now enjoys reading dog w seizure disorder dog w seizure disorder dog w seizure disorder dog w seizure disorder dog w seizure disorder dog w seizure disorder dog w seizure disorder dog w seizure disorder dog w seizure disorder dog w seizure disorder dog w seizure disorder dog w seizure disorder dog w seizure disorder dog w seizure disorder healthy diet fun--likes swimming,hiking,horsebackriding enjoys reading dog w seizure disorder dog w seizure disorder dog w seizure disorder dog w seizure disorder dog w seizure disorder dog w seizure disorder dog w seizure disorder healthy diet fun--likes swimming,hiking,horsebackriding enjoys reading dog w seizure disorder healthy diet fun--likes swimming,hiking,horsebackriding enjoys reading healthy diet fun--likes swimming,hiking,horsebackriding enjoys reading healthy diet fun--likes swimming,hiking,horsebackriding enjoys reading dog w seizure disorder healthy diet fun--likes swimming,hiking,horsebackriding enjoys reading huge stressors huge stressors healthy diet fun--likes swimming,hiking,horsebackriding enjoys reading healthy diet fun--likes swimming,hiking,horsebackriding enjoys reading healthy diet fun--likes swimming,hiking,horsebackriding enjoys reading healthy diet fun--likes swimming,hiking,horsebackriding enjoys reading healthy diet fun--likes swimming,hiking,horsebackriding enjoys reading healthy diet fun--likes swimming,hiking,horsebackriding enjoys reading healthy diet fun--likes swimming,hiking,horsebackriding enjoys reading healthy diet fun--likes swimming,hiking,horsebackriding --cant do those things now enjoys reading dog w seizure disorder healthy diet fun--likes swimming,hiking,horsebackriding --cant do those things now enjoys reading Problems Problem Type SNOMED Code ICD Code Onset Dates Problem Status W/U Status Risk Notes Problem Gastroesophageal reflux disease (874749026) GERD (K21.9) Active confirmed Problem Hypothyroidism (52264479) Hypothyroidism (E03.9) Active confirmed Problem Basal cell carcinoma of nose (561553954) Basal cell carcinoma of skin of nose (C44.311) Active confirmed Problem Basal cell carcinoma of truncal skin (127714691) Basal cell carcinoma of skin of other part of trunk (C44.519) Active confirmed Problem Hypothyroidism (72110114) Hypothyroidism other specified (E03.8) Active confirmed Problem Estrogen excess (10797487) Estrogen excess (E28.0) Active confirmed Problem Vitamin D deficiency (57340826) Vitamin D deficiency, unspecified (E55.9) Active confirmed Problem Cyclothymic disorder (96063123) Cyclothymic disorder (F34.0) Active confirmed Problem Mononeuropathy o f left upper limb, unspecified (G56.92) Active confirmed Problem Uncomplicated mild persistent asthma (802570796) Asthma Mild persistent, uncomplicated (J45.30) Active confirmed Problem Solitary sacroiliitis (062716793) Sacroiliitis, not elsewhere classified (M46.1) Active confirmed Problem Herniation of rectum into vagina (608102307) Rectocele (N81.6) Active confirmed Problem Endometrial hyperplasia (687857675) Endometrial hyperplasia, unspecified (N85.00) Active confirmed Problem Postmenopausal bleeding (03820904) Postmenopausal bleeding (N95.0) Active confirmed Problem Menopause (956253570) Menopausal and female climacteric states (N95.1) Active confirmed Problem Attention deficit hyperactivity disorder (902950201) ADHD, combined type (F90.2) Active confirmed Problem Urinary incontinence (593888951) Urinary incontinence, unspecified (R32) Active confirmed Problem Menorrhagia (776169182) Menorrhagia (N92.0) Active confirmed Problem Allergic rhinitis caused by pollen (55460960) Allergy environmental (J30.1) Active confirmed Problem Generalized anxiety disorder (25761179) Generalized anxiety disorder (F41.1) Active confirmed Problem Poor concentration (finding) (49459008) Concentration deficit (R41.840) Active confirmed Problem Constipation (59240936) Constipation NOS (K59.00) Active confirmed Problem Paresthesia (finding) (43487449) Paresthesias (R20.2) Active confirmed Problem Mild cognitive disorder (885290751) Mild cognitive impairment of uncertain or unknown etiology (G31.84) Active confirmed Vital Signs Temperature 98.0 degrees Fahrenheit 07/31/2025 Oximetry 97 07/31/2025 Blood pressure diastolic 78 mm Hg 07/31/2025 Height 67.5 in 07/31/2025 Blood pressure systolic 110 mm Hg 07/31/2025 Weight 169.4 lbs 07/31/2025 BMI 26.14 kg/m2 07/31/2025 Encounters Encounter Location Date Provider Diagnosis [place] [address] [place] [address] 12/16/2024 Rock Astudillo Basal cell carcinoma of skin of other part of trunk C44.519 [facility] [address] [place] [address] 02/26/2025 Deep Francois Basal cell carcinoma of skin of other part of trunk C44.519 ; Fatigue R53.83 ; ADHD, combined type F90.2 and Menopausal and female climacteric states N95.1 [facility] [address] [place] [address] 07/31/2025 Deep Francois Adult physical SMITHA L Z00.00 ; Encounter for immunization Z23 ; Encounter for screening for other disorder Z13.89 ; Encounter for screening for depression Z13.31 ; Encounter for other screening for malignant neoplasm of breast Z12.39 ; Encounter for screening for malignant neoplasm of colon Z12.11 ; Encounter for screening for malignant neoplasm of skin Z12.83 ; Disappearance and of family member Z63.4 ; Ingrown toenail L60.0 ; Concentration deficit R41.840 ; Xerostomia K11.7 ; Menopausal and female climacteric states N95.1 ; Fatigue R53.83 ; Hypothyroidism other specified E03.8 ; Basal cell carcinoma of skin of nose C44.311 and Vitamin D deficiency, unspecified E55.9 [place] [address] [place] [address] 10/04/2024 Deep Francois [place] [address] [place] [address] 10/30/2024 Deep Francois [place] [address] [place] [address] 11/29/2024 Deep Francois [place] [address] [place] [address] 12/11/2024 Deep Francois [place] [address] [place] [address] 12/16/2024 Aline Duffy [place] [address] [place] [address] 01/02/2025 Aline [place] [address] [place] [address] 06/02/2025 Aline Duffy [place] [address] [place] [address] 08/19/2025 Aline Duffy [place] [address] [place] [address] 12/30/2024 Deep Francois [place] [address] [place] [address] 02/05/2025 Deep Francois [place] [address] [place] [address] 02/18/2025 Deep Francois [place] [address] [place] [address] 03/07/2025 Deep Francois Pain Neck M54.2 [place] [address] [place] [address] 06/03/2025 Aline Duffy [place] [address] [place] [address] 08/17/2025 Deep Francois Assessments Encounter Date Diagnosis (ICD Code) Assessment Notes Treatment Notes Treatment Clinical Notes Section Notes 12/16/2024 Basal cell carcinoma of skin of other part of trunk (ICD-10 - C44.519) -[facility] obtained right medial superior chest shave biopsy 11/21/24. -Pathology impression: Basal cell carcinoma, superficial, nodular, and infiltrative types, extending to the tissue edges. -Has referral to [facility] for mohs procedure. Not booked yet. -Pt is s/p basal cell w/ mohs in 2023. -Cont plan per derm 02/26/2025 Basal cell carcinoma of skin of other part of trunk (ICD-10 - C44.519) - Continue regular skin exams every six months with [facility]. - Follow up with culinary specialist as needed for any new or changing lesions. 02/26/2025 Fatigue (ICD-10 - R53.83) - Continue with duloxetine 20 mg for now, providing 90-day supply with three refills. NO SI concerns. - If considering medication transition, recommend consultation with Iram or the new psychiatrist, Ivan, to discuss medication history and manage potential withdrawal symptoms. 07/31/2025 Encounter for immunization (ICD-10 - Z23) AFP strongly encourages routine vaccinations for adults and children. Encouraged consideration of recommended vaccine(s) for personal protection and community/herd immunity. Updated today 07/31/2025 Adult physical NORMAL (ICD-10 - Z00.00) Ruben 60 yo female here for annual wellness visit. Is in good health. We also discussed several chronic conditions today. She has been down in the last several weeks because of her father's recent illness and . We advise having an annual exam and visit to address age-appropriate screening tests, including screening for cardiovascular disease, cancers, mood disorders, sexually transmitted infections, and other appropriate conditions based upon age and personal risk factors. Cardiovascular risk assessment should occur periodically, utilizing lipid panel and AHA/ACC risk-based calculators, inflammatory markers when indicated, Lp(a) as a one-time test for all adults, and coronary calcium score if appropriate for individual stratification. We recommend routine vaccines for patients of all ages based on guidance from the major medical organizations and evidence-based research. Regular exercise helps lower the risk of almost all diseases, including cancer. Adults need at least 150 minutes of moderate physical activity or 75 minutes of vigorous activity each week. Any increase in activity is beneficial for health, especially for those under the target range. Adding/increasing strength training or incorporating HIIT workouts is important for bone health. Balancing training such as a Derik Chi practice has been demonstrated to significantly reduce the risk of falls. Stress management, healthy relationships, quality sleep, and supportive communities are important factors in contributing to success for individual wellness goals. 03/07/2025 Pain Neck (ICD-10 - M54.2) 02/26/2025 ADHD, combined type (ICD-10 - F90.2) see above 07/31/2025 Encounter for screening for other disorder (ICD-10 - Z13.89) Encouraged continued awareness of alcohol consumption patterns and potential health impacts. AUDIT-C negative. Alcohol use is directly linked to over 40 medical conditions, including cancer, heart disease, stroke, liver disease, digestive problems, and mental health conditions. 02/26/2025 Menopausal and female climacteric states (ICD-10 - N95.1) Stable on MRT. Continue current dosages. Here is a source of comprehensive information about menopause: https://www.acog. org/patient-resou rces/faqs/womens- health/the-menopa use-years. Modifications to your diet can impact menopausal symptoms. Phytoestrogens are plant based estrogens that have substantial impact on symptoms for many women. Sweet potatoes are an example of a food that is rich in phytoestrogens. You can learn more here: https://nutrition facts.org/video/s oy-phytoestrogens -vos-dbbtqzhqn-in t-flashes/ 07/31/2025 Encounter for screening for depression (ICD-10 - Z13.31) Screen reassuring today. Annual administration of the Patient Health Questionnaire-9 (PHQ-9) is performed to systematically screen for major depressive disorder (MDD) in adult patients. Exercising regularly is one of the best things you can do for your mental health. Exercise prompts the release of endorphins in your brain and reduces immune system responses that may worsen depression. Make sure that you're regularly connecting with friends and family. Consider trying a new hobby that involves group settings where you might meet new people. Avoid overcommitting to things. Practice mindfulness or meditation. Get plenty of sleep. Insomnia or insufficient sleep is significantly associated with depression. Eat a healthy diet rich in omega 3 fatty acids (like salmon and nuts) and avoid sugars, saturated fats, and processed foods. 07/31/2025 Encounter for other screening for malignant neoplasm of breast (ICD-10 - Z12.39) Is up to date. Recommend screening for BREAST CANCER per current guidelines for age and individualized risk assessment. The USPSTF recommends screening mammography at least every two years for women aged 40 to 74 years. Annual screening is advised for younger women, those at increased risk, those with prior abnormal screens or biopsies, and those on MHT. https://www.uspre ventiveservicesta skforce.org/uspst f/recommendation/ xvhdhz-wkaizx-ody eening. history imparts a reduction in cancer risk over the general population by 4.3% for every 12 months of . A whole food plant-based diet and avoidance of alcohol are additional modifiable risk reduction strategies. Regular exercise is also proven to reduce risk. 07/31/2025 Encounter for screening for malignant neoplasm of colon (ICD-10 - Z12.11) Is up to date. The [employer] advises screening for colorectal cancer (CRC) with FIT, flexible sigmoidoscopy, or colonoscopy starting at 45 years of age and continuing until at least 75 years of age. Tips to reduce the risk of colon cancer include: Eat a variety of fruits, vegetables and whole grains. Fruits, vegetables and whole grains contain vitamins, minerals, fiber and antioxidants, which may play a role in cancer prevention. Drink alcohol in moderation, if at all. Stop smoking if you currently smoke. Talk to your healthcare team if you need help quitting. Exercise most days of the week. Try to get at least 30 minutes of exercise on most days. If you've been inactive, start slowly and build up gradually to 30 minutes. Also, talk to your healthcare team before starting any exercise program. Maintain a healthy weight 07/31/2025 Encounter for screening for malignant neoplasm of skin (ICD-10 - Z12.83) Continue regular dermatology evaluations and maintain sun protection practices. Discussed the importance of monitoring for any new skin changes. You can help prevent skin cancer by protecting your skin from the sun's rays. To reduce the chance of getting skin cancer, you can: Stay out of the sun in the middle of the day (from 10 a.m. to 4 p.m.), Wear sunscreen and reapply it often, Wear a wide-brimmed hat, long-sleeved shirt, or long pants, Avoid tanning beds. Additional information here: www.aad.org/publi c/ftuf-smky-bkxkn r/mltip-fkmzp-hpv n-cancer/prevent/ dwy-hq-ewiknk-a-s unscreen, www.skincancerpre vention.org, www.skincancer.or g/index.php 07/31/2025 Disappearance and of family member (ICD-10 - Z63.4) Acknowledge the recent passing of her father and related stressors. Encourage maintaining supportive relationships during this period. 07/31/2025 Ingrown toenail (ICD-10 - L60.0) Ingrown toenail noted. Discussed treatment options, including warm water soaks several times a day to help reduce swelling and alleviate discomfort. May try applying a small amount of tea tree oil, or even Vicks VapoRub, as both might help address the possible underlying conditions that promote fungal infections. Allow nail to grow longer, clip nail straight across, and ensure proper footwear with an adequately wide toebox to prevent ingrown nail in the future. If symptoms persist, please call to schedule partial nail removal. Referral to Dr. Sharon Duffy for possible removal of the ingrown toenail. Discussed procedure options, including partial or full removal under a digital block. 07/31/2025 Concentration deficit (ICD-10 - R41.840) Discussed the situational nature of current mood and ADHD management strategies. Considering non-medication approaches, with ongoing evaluation of caffeine and hormone therapy effectiveness. 07/31/2025 Xerostomia (ICD-10 - K11.7) Continue using the prescription toothpaste for dry mouth. Monitor dental health for any further issues. 07/31/2025 Menopausal and female climacteric states (ICD-10 - N95.1) She is enjoying the benefit of MHT and would like to continue. Advised to get yearly breast cancer screening with CBE and mammograms. Refills sent. Notify us immediately of any vaginal bleeding. 07/31/2025 Fatigue (ICD-10 - R53.83) Effective sleep, exercise, adequate vitamin D, and sunlight all improve mood. Spending time doing things that you enjoy is vitally important to overall physical and mental wellbeing. Medication is an important adjunct. Please alert us if you experince any new side effects. Thryoid dysfunction and imbalance can contribute to fatigue and down mood. Do not take antidepressants with other substances, especially alcohol and/or marijuana as both are also depressants 07/31/2025 Hypothyroidism other specified (ICD-10 - E03.8) TSH within goal. Advised to continue current dose of levothyroxine. We will recheck at next visit. Overcorrection may lead to loss of bone density. Please ensure adequate Vit D3 and Calcium. Call with symptoms of overcorrection including palpitations, nervousness, sweats, sleep difficulties, diarrhea 07/31/2025 Basal cell carcinoma of skin of nose (ICD-10 - C44.311) Has completed treatment, follow-up plan per Derm 07/31/2025 Vitamin D deficiency, unspecified (ICD-10 - E55.9) Was low last summer. We recommend a supplement to all patients due to [place]. Please take Vitamin D3 2000 IU daily unless an alternate dose is indicated by lab values or suggested by your provider. Learn more at https://familydoc tor.org/vitamin-d /. Vitamin D has many important health benefits, including supporting a healthy immune system, strong bones, and a balanced mood 02/26/2025 Other Medical decision-making was shared with the patient, [...] outcomes through comprehensive and coordinated multidisciplinary care. 07/31/2025 Other Blood tests including thyroid function to be conducted at a convenient location, such as the [facility] in [place]. Medical decision-making was shared with the patient, [...] and coordinated multidisciplinary care. Plan Of Treatment Pending Test Test Name Order Date Ultrasound : Pelvis 12/20/2017 Ultrasound : Abdomen 06/22/2022 Mammogram 06/17/2021 Mammogram 06/15/2006 Mammogram 03/11/2008 Mammogram, left breast 04/26/2006 Mammogram, right breast 04/26/2006 Spirometry 03/06/2017 Colonoscopy 03/06/2017 ekg 03/19/2018 sandro 10/22/2012 sandro 10/31/2012 -PAP, cervical: HPV HYBRID C APTURE HIGH RISK DNA PROBE if diagnosis of ASCUS 11/29/2006 COMPLETE BLOOD COUNT 12/03/2007 X ray : Sinus series 11/24/2010 endometrial biopsy 08/06/2020 -UCG(UPREG) 08/06/2020 -erlichiosis 03/19/2011 PAP, cervical; HPV Hybrid Capture High R isk DNA Probe any Dx 06/17/2021 PAP, cervical; HPV Hybrid Capture High R isk DNA Probe any Dx 03/07/2018 PAP, cervical; HPV Hybrid Capture High R isk DNA Probe any Dx 03/02/2016 PAP, cervical; HPV Hybrid Capture High R isk DNA Probe any Dx 03/06/2017 Mammogram, routine annual screening 02/23 Mammogram, routine annual screening 04/2016 Mammogram, routine annual screening 09/26 Mammogram, routine annual screening 09/26 Mammogram, routine annual screening 02/2013 Mammogram, routine annual screening 02/23 Mammogram, routine annual screening 05/27 -PARVOVIRUS B-19 ANTIBODIES (IGG, IGM) 0 03/19/2011 -TSH 06/06/2012 -TSH 12/03/2007 FERRITIN 06/02/2015 IRON & TIBC 06/02/2015 HEMOGLOBIN A1C 09/30/2021 HEMOGLOBIN A1C 06/17/2021 COMPREHENSIVE METABOLIC PANL 06/17/2021 COMPREHENSIVE METABOLIC PANL 09/30/2021 COMPREHENSIVE METABOLIC PANL 02/17/2015 LIPID PANEL 02/17/2015 LIPID PANEL 09/30/2021 LIPID PANEL 06/17/2021 TSH WITH REFLEX TO T4 06/17/2021 TSH WITH REFLEX TO T4 01/31/2023 TSH WITH REFLEX TO T4 02/17/2015 TSH 10/03/2016 Vitamin D25 OH 06/17/2021 Vitamin D25 OH 03/21/2024 Vitamin D25 OH 09/30/2021 CBC 02/17/2015 CBC AUTO DIFF 06/17/2021 Ultrasound : Pelvis and Endovag 08/03/20 THYROID PANEL 07/13/2016 COMP MET PANEL 05/25/2020 Free T3 05/25/2020 Sedimentation rate (ESR) 05/25/2020 Kaitlin Screen Only, Serum 03/21/2024 CRP 05/25/2020 Free T4 05/25/2020 TSH 05/25/2020 CBC AND DIFFERENTIAL 05/25/2020 Treadmill Stress Test 07/09/2024 Vitamin D, [id number] 07/31/2025 Comprehensive Metabolic Panel ([id number], [facility]) 07/31/2025 Lipid Panel-[id number] 07/31/2025 CBC with Diff, Platelet, NLR-[id number] 02/2025 HSCRP 03/21/2024 HSCRP 07/31/2025 TSH reflex to T4 07/31/2025 Hemoglobin A1c 07/31/2025 Future Test Test Name Order Date -CRP, High Sensitivity (HSCRP) 0 COMPLETE BLOOD COUNT 10/07/2009 -LIPID PANEL 10/07/2009 -TSH 10/07/2009 COMPREHENSIVE METABOLIC PANL -40069 09/25 Urinalysis, Complete (5463 NOHO) 010 Next Appt Details Provider Name:Aline Haider [facility], 10/02/2025 11:45:00 AM, [address] [place], [address], Provider Name:Deep allen, 02/05/2026 12:00:00 PM, [address] [place], [address], Provider Name:Deep allen, 08/13/2026 01:30:00 PM, [address] [place], [address], Insurance Providers Payer Name Payer Address Payer Phone Subscriber Number Group Number Insured Name Patient Relationship to Insured Coverage Start Date Coverage End Date [facility] [address] [place] [address] [phone] [id number] RUBEN LARSON Self - patient is the insured Medical (General) History Medical History History ICD Code ORTHO: Jennifer Bhardwaj MD - RIGHT 1st MTP fusion 09/03/24 NEURO: Rafa Mancuso MD HAND: Ant Mai MD -> EMGs UE (07/27 06/18): b/l carpal tunnel GI: GERD/IBS - [place] UROLOGY: Kylie Cr M -> Bladder dysfunction (nerve damage after high forceps delivery) - DERM: Jerzy Casey MD/Fran r -> BCC + margins forehead and RIGHT mid upper back (May 2025), Basal Cell CA nose (Sep 2023), chest (Oct 2024), Dysplastic nevi Hypothyroid Asthma, mild persistent Dysthymic disorder Restless legs syndrome G25.81 joint pains - RIGHT foot, LEFT hand/wris t (2023) menopause on HRT mammo (07/04/22 @ [facility]) BI-RADS 1 PAP SMEAR (06/23/2021): NILM, atrophy, HP V neg Colonoscopy (07/[facility]/2020 at [facility] - normal . Surgical History Surgery Date(Month/Year) abd laparoscopy for endometriosis 1996 umbilical hernia repair 2004 two dysplastic nevi Rectocele repair, sling proc edure,paraneal repair-/. 10/06/08 PT at [facility] rehab in [place] 2times/wk Basal Cell removal on face - Dr Etienne 11/14 23 Hospitalization History Reason Date(Month/Year) Normal Colonoscopy + EGD ([facility]) 05/2006 labor
--- OUTSIDE RECORDS SUMMARY | 2025-08-28 11:51 | XMS_ITS | Encounter Summary ---
Author Organization [facility] Address [address] [place] [address] Phone Care Team Providers Care Hander In Name Role Phone Aline Duffy MD Unavailable [phone] Aline Duffy MD Primary Care Provider + Deep Francois MD Primary Care Provider + [phone] Encounter Details Date Type Department Care Team (Latest Contact Info) Description 06/22/2020 Transcribe Orders [facility] [address] [place] [address] Franca Richter PA-C [address], [address] [place] [address] [email or web address] Constipation, unspecified constipation type (Primary Dx) Social History Tobacco Use Types [...] documented as of this encounter Results * Immunoglobulin A (06/22/2020 10:54 AM EDT) IgA 167 70 - 400 mg/dL [facility] Blood 06/22/2020 10:5 4 AM EDT 06/22/2020 11:05 AM EDT us Franca Richter PA-C LAB BLOOD BKR ORDERABLES Final Result [facility] [address] [place] [address] * Tissue transglutaminase IgA (06/22/2020 10:54 AM EDT) TTG IGA ANTIBODY <1.2 <4.0 (Negative) U/mL [facility] [address] Blood 06/22/2020 10:5 4 AM EDT 06/22/2020 11:05 AM EDT us Franca WEATHERS-C LAB BLOOD BKR ORDERABLES Final Result [facility] [address] [place] [address] documented in this encounter Visit Diagnoses Diagnosis Constipation, unspecified constipation type- Primary documented in this encounter Care Teams Hander In Relationship Specialty Start Date End Date Aline Duffy MD [address] [place] [phone] PCP - General Family Medicine 03/15/19 11/24/24 Deep Francois MD [address] [place] [phone] PCP - General Family Medicine 11/25/24 Aline Duffy MD [address] [place] [phone] Insurance Assigned Provider 12/30/23 documented as of this encounter Additional Source Comments The information contained in this document represents components of the legal health record. It is not the complete legal health record.[facility]
--- OUTSIDE RECORDS SUMMARY | 2025-08-28 11:51 | XMS_ITS | Encounter Summary ---
Author Organization [facility] Address [address] [place] [phone] Phone Care Team Providers Care Denture Model Maker Name Role Phone Aline Duffy MD Unavailable [phone] Unknown, Unknown Primary Care Provider Aline Toribio MD Primary Care Provider + Deep Francois MD Primary Care Provider + [phone] Encounter Details Date Type Department Care Team (Late st Contact Info) Description 03/11/2019 Ancillary Orders Virtual Department [address] [place] [address] Aline Duffy MD [address] [place] [phone] [email or web address] Visit for screening mammogram Social History Tobacco Use Types Packs/Day Years Used Date Smoking Tobacco: Never Assessed Comments Unknown Sex and Gender Information Value Date Recorded Sex Assigned at Female 07/04/2022 7:14 AM EDT Legal Sex Female 9:40 PM EDT Gender Identity Female 07/04/2022 7:14 AM EDT Sexual Orientation Not on file documented as of this encounter Plan of Treatment Not on file documented as of this encounter Results * BI MAMMOGRAM SCREENING WITH TOMOSYNTHESIS WITH CAD (BILATERAL) (03/15/2019 10:59 AM EDT) Anatomical Region Laterality Modality Breast Left, Breast Right, Breast Bilateral Bila teral Mammography 03/15/2019 2:18 PM EDT Impressions 03/15/2019 2:20 PM EDT BILATERAL BREASTS: Negative, no evidence of malignancy. Normal interval follow- up is recommended in 12 months. Bi-RADS: BI-RADS CATEGORY: 1 - Negative. DENSITY: The breast tissue is heterogeneously dense, an appearance which lowers the sensitivity of mammography. POS - CDHMAMA Narrative 03/15/2019 2:20 PM EDT STUDY: Bilateral screening mammography with tomosynthesis and CAD TECHNIQUE: Bilateral full-field digital screening mammography is obtained and read in conjunction with computer-aided detection. Tomosynthesis as well as 2-D C view imaging were obtained. COMPARISON: Comparison made to multiple prior, most recent February 18, 2015, and most remote August 19, 2008. BREAST COMPOSITION: The breasts are heterogeneously dense, which may obscure small masses. BILATERAL BREASTS: No significant masses, calcifications or other abnormalities are seen. Procedure Note Alexander Ross MD - 03/15/2019 STUDY: Bilateral screening mammography with tomosynthesis and CAD TECHNIQUE: Bilateral full-field digital screening mammography is obtainedand read in conjunction with computer-aided detection. Tomosynthesis aswell as 2-D C view imaging were obtained. COMPARISON: Comparison made to multiple prior, most recent February 18, 2015,and most remote August 19, 2008. BREAST COMPOSITION: The breasts are heterogeneously dense, which mayobscure small masses. BILATERAL BREASTS: No significant masses, calcifications or otherabnormalities are seen. IMPRESSION: BILATERAL BREASTS: Negative, no evidence of malignancy. Normal intervalfollow-up is recommended in 12 months. Bi-RADS: BI-RADS CATEGORY: 1 - Negative. DENSITY: The breast tissue is heterogeneously dense, an appearance whichlowers the sensitivity of mammography. POS - CDHMAMA us Alnie Duffy MD IMG MG EXAMS Final Re sult documented in this encounter Visit Diagnoses Diagnosis Visit for screening mammogram Visit for screening mammogram documented in this encounter Care Teams Denture Model Maker Relationship Specialty Start Date End Date Unknown, Unknown, MD PCP - General 03/14/19 03/14/19 Aline Duffy MD [address] [place] [address] [email or web address] PCP - General Family Medicine 03/15/19 11/24/24 Deep Francois MD [address] [place] [phone] [email or web address] PCP - General Family Medicine 11/25/24 Aline Duffy MD [address] [place] [phone] [email or web address] Insurance Assigned Provider 12/30/23 documented as of this encounter Additional Source Comments The information contained in this document represents components of the legal health record. It is not the complete legal health record.[facility]
--- OUTSIDE RECORDS SUMMARY | 2025-08-28 11:51 | XMS_ITS | Encounter Summary ---
Author Organization [facility] Address [address] [place] [address] Phone Care Team Providers Care Solar Designer Name Role Phone Aline Duffy MD Unavailable [phone] Aline Duffy MD Primary Care Provider + Deep Francois MD Primary Care Provider + [phone] Encounter Details Date Type Department Care Team (Late st Contact Info) Description 08/05/2020 Ancillary Orders Virtual Department [address] [place] [address] Aline Duffy MD [address] [place] [phone] DUB (dysfunctional uterine bleeding); Post-menopausal bleeding Social History Tobacco Use Types Packs/Day Years [...] Results * US PELVIS TRANSABDOMINAL PLUS TRANSVAGINAL (08/06/2020 1:00 PM EST) Anatomical Region Laterality Modality Pelvis, Uterus/Adnexa Ultrasound 08/06/2020 1:09 PM EST Impressions 08/06/2020 1:13 PM EST Thickening of the endometrium for patient age without discrete mass identified. It is understood that the patient will be undergoing endometrial biopsy. Uterine fundal fibroid.. Ovaries not visualized on transabdominal or endovaginal technique. POS - [id number] Narrative 08/06/2020 1:13 PM EST COMPARISON: None FINDINGS: Transabdominal and endovaginal scanning was performed with transabdominal is limited due to the bladder not being adequately prepped. Uterus somewhat enlarged measuring 7.6 x 4.1 x 7.0 cm and displays homogeneous parenchymal echo-texture when allowing for a 3.5 x 2.3 x 2.3 cm fibroid in the right aspect of the fundus. Endometrial echocomplex appears thickened for patient age at 9 mm in width although no discrete mass or fluid collection were identified. Ovaries could not be visualized. Trace free fluid apparent in the cul-de-sac. Procedure Note Drew Plata MD - 08/06/2020 COMPARISON: None FINDINGS: Transabdominal and endovaginal scanning was performed with transabdominalis limited due to the bladder not being adequately prepped. Uterussomewhat enlarged measuring 7.6 x 4.1 x 7.0 cm and displays homogeneousparenchymal echo-texture when allowing for a 3.5 x 2.3 x 2.3 cm fibroid inthe right aspect of the fundus. Endometrial echocomplex appears thickenedfor patient age at 9 mm in width although no discrete mass or fluidcollection were identified. Ovaries could not be visualized. Trace free fluid apparent in [id number]. IMPRESSION: Thickening of the endometrium for patient age without discrete massidentified. It is understood that the patient will be undergoingendometrial biopsy. Uterine fundal fibroid.. Ovaries not visualized ontransabdominal or endovaginal technique. POS - [id number] Aline Duffy MD [facility] US PELVIS Final Re sult documented in this encounter Visit Diagnoses Diagnosis DUB (dysfunctional uterine bleeding) Other disorder of menstruation and other abnormal bleeding from female genital tract Post-menopausal bleeding Postmenopausal bleeding DUB (dysfunctional uterine bleeding) Other disorder of menstruation and other abnormal bleeding from female genital tract Post-menopausal bleeding Postmenopausal bleeding documented in this encounter Care Teams Solar Designer Relationship Specialty Start Date End Date Aline Duffy MD [address] [place] [id number] [email or web address] PCP - General Family Medicine 03/15/19 11/24/24 Deep Francois MD [address] [place] [phone] [email or web address] PCP - General Family Medicine 11/25/24 Aline Duffy MD [address] [place] [phone] [email or web address] Insurance Assigned Provider 12/30/23 documented as of this encounter Additional Source Comments The information contained in this document represents components of the legal health record. It is not the complete legal health record.[facility]
--- OUTSIDE RECORDS SUMMARY | 2025-08-28 11:51 | XMS_ITS | Encounter Summary ---
Author Organization [facility] Address [address] [place] [address] Phone Care Team Providers Care Assisted Living Director Name Role Phone Aline Duffy MD Unavailable [phone] Aline Duffy MD Primary Care Provider + Deep Francois MD Primary Care Provider [phone] Encounter Details Date Type Department Care Team (Late st Contact Info) Description 08/05/2020 Ancillary Orders Virtual Department [address] [place] [address] Aline Duffy MD [address] [place] [phone] DUB (dysfunctional uterine bleeding) Social History Tobacco Use Types Packs/Day Years [...] as of this encounter Visit Diagnoses Diagnosis DUB (dysfunctional uterine bleeding) Other disorder of menstruation and other abnormal bleeding from female genital tract documented in this encounter Care Teams Assisted Living Director Relationship Specialty Start Date End Date Aline Duffy MD [address] [place] [phone] [email or web address] PCP - General Family Medicine 03/15/19 11/24/24 Deep Francois MD [address] [place] [phone] [email or web address] PCP - General Family Medicine 11/25/24 Aline Duffy MD [address] [place] [phone] [email or web address] Insurance Assigned Provider 12/30/23 documented as of this encounter Additional Source Comments The information contained in this document represents components of the legal health record. It is not the complete legal health record.[facility]
== END 2025-08-28 11:05 | disposition home or self-care (01) ==
LOC: HO.HPODS 10:02
PROVIDERS: PCP Family Medicine; Visit Provider Student in an Organized Health Care Education/Training Program
DX: L60.0 Ingrowing nail (principal); L60.9 Nail disorder, unspecified; L03.031 Cellulitis of right toe; M79.674 Pain in right toe(s)
CPT/HCPCS: 11730; 99204

== ENCOUNTER → 2025-08-28 10:01 | Outpatient (BNVA) | payer BC, SELFPAY | PROVIDERS: PCP Family Medicine; Visit Provider Student in an Organized Health Care Education/Training Program | DX: L60.0 Ingrowing nail (principal); L60.9 Nail disorder, unspecified; L03.031 Cellulitis of right toe; M79.674 Pain in right toe(s) | CPT/HCPCS: 11730; J2003 ==

== ENCOUNTER 2025-09-11 14:30 | Outpatient (AMB) | payer BC, SELFPAY ==
--- OUTSIDE RECORDS SUMMARY | 2024-07-09 05:00 | XMS_ITS ---
Author Organization [facility] melissa Address [address] [place] [address] Care Team Providers Care Outside Event Sales Specialist Name Role Phone Duffy Aline Primary Care Provider [phone] Adititiffany Deepdemetrius Jimenez [phone] Allergies Allergen (clinical drug ingredient) Drug/Non Drug Allergy documented on EMR Reaction Allergy Type Onset Date Status codeine Codeine rash Drug Allergy Active Results Component Value Reference Range Notes ekg Reviewed date:07/19/2024 12:30:43 AM Interpretation: Performing Lab: Notes/Report: Heart Rate 65 Systolic Blood Pressure 124 Diastolic Blood Pressure 86 NE Interval 146 QT Interval 396 QTc Interval 404 QRS Duration 80 PWave Liberty 50 QrsWave Liberty 52 TWave Liberty 55 Mean Heart Rate 0 Diastolic Blood Pressure 0 Systolic Blood Pressure 0 MeanRR Interval 0 MinRR Interval 0 MaxRR Interval 0 NumBeats 0 Spirometry Reviewed date: Interpretation: Performing Lab: Notes/Report: REASON FOR VISIT CPE- fu, due for tani??/mas, PHQ9: 0, PAP: 06/23/21 (NILM, HPV neg)- due 2025, MAMMO: 07/06/22- due, has scheduled 11/25/24, COLONOSCOPY: 07/20 20- due 2029, HCP: verified with patient, Hearing screen:declines, IMMS: flu & covid (consents) Medications Medication SIG (Take, Route, Frequency, Duration) Notes Start Date End Date Status Cyclobenzaprine HCl 5 MG Tablet 1 tab(s) orally 3 times a day; Duration: 5 days prn Active Levothyroxine Sodium 150 MCG Tablet 1 tab(s) orally once a day; Duration: 90 days ok to fill immediately Active lamoTRIgine 100 MG Tablet 1 tab(s) orally once a day; Duration: 90 days Not-Taking/ PRN Diclofenac Sodium 1 % Gel as directed applied topically 4 times a day as needed; Duration: 30 days Active DULoxetine HCl 20 MG Capsule Delayed Release Particles TAKE 1 CAPSULE BY MOUTH EVERY DAY FOR 90 DAYS; Duration: 90 Active Singulair 10 MG Tablet TAKE 1 TABLET BY MOUTH EVERY EVENING; Duration: 90 days Active Progesterone 100 MG Capsule 1 cap(s) orally once a day (at bedtime); Duration: 30 days Active Vitamin D 2000 IU 1 TAB PO QD Active Meloxicam 15 MG Tablet 1 tablet Orally Once a day Active Estradiol 0.1 MG/GM Cream as directed Vaginal 3 times per week; Duration: 30 days 1 g nightly x 2 weeks, then 2-3 x per week 07/09/2024 Active Estradiol 0.05 MG/24HR Patch Twice Weekly 1 patch to skin Transdermal Two times a Week; Duration: 84 days Active Immunizations Vaccine Route Administration Date [facility]+ PFIZER PURCHASED IM Intramuscular 07/09/2024 Administered FLUBLOK PURCHASED IM Intramuscular 07/09/2024 Administered Social History Social History Additional Details Category Social Info Options Details Social History 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 Alcohol: About 3 drinks p er wk-glass of wine Sexually active: no problems Exercise: yoga class 2-3xweek and home program, rides horse 3x weekly hikes 1-2x week or swims regularly Marital Status: Children: Daughter, sons Pets: Dogs: Buddhist: advent lives in [facility] and and 2 sons, 1 daughter Section Notes: dog w seizure disorder Problems Problem Type SNOMED Code ICD Code Onset Dates Problem Status W/U Status Risk Notes Problem Uncomplicated mild persistent asthma (889979876) Asthma Mild persistent, uncomplicated (J45.30) Active confirmed Vital Signs Temperature 96.8 degrees Fahrenheit 07/09/20 24 Blood pressure systolic 124 mm Hg 07/09/20 24 Blood pressure diastolic 86 mm Hg 024 Height 67.5 in 07/09/2024 Weight 160.7 lbs 07/09/2024 BMI 24.79 kg/m2 07/09/2024 Oximetry 99 07/09/2024 Encounters Encounter Location Date Provider Diagnosis [facility] [address] [place], [place] [address] 07/09/2024 Deep Francois Adult physical SMITHA L Z00.00 ; Palpitations R00.2 ; Pain foot, right M79.671 ; Asthma Mild persistent, uncomplicated J45.30 ; Nocturia R35.1 ; Menopausal and female climacteric states N95.1 and Encounter for immunization Z23 Assessments Encounter Date Diagnosis (ICD Code) Assessment Notes Treatment Notes Treatment Clinical Notes Section Notes 07/09/2024 Adult physical NORMAL (ICD-10 - Z00.00) We advise having an annual exam and visit to address age appropriate screening tests including screening for cardiovascular disease, cancers, mood disorders, sexually transmitted infections, and other appropriate conditions based upon age and personal risk factors. We recommend routine vaccines for patient of all ages based on guidance from the CDC Committee on Immunization Practices. https://www.cdc. gov/vaccines/zheng edules/downloads /adult/adult-com bined-schedule.p df We encourage exercise as advised by the USPSTF/AAFP: Try to engage in 150 to 300 minutes of moderate physical activity each week. Any increase in activity is beneficial for health, especially for those under the target range. Adding/increasin g strength training or incorporating HIIT workouts is important for bone health. Stress management, healthy relationships, quality sleep, and supportive communities are important factors in contributing to success for individual wellness goals. 07/09/2024 Palpitations (ICD-10 - R00.2) EKG done today, reassuring. Will do stress test. 07/09/2024 Pain foot, right (ICD-10 - M79.671) Pending RIGHT 1st MTP fusion on 09/03/24, plan per ortho team 07/09/2024 Asthma Mild persistent, uncomplicated (ICD-10 - J45.30) [place] reassuring. Symptoms stable. Has Albuterol for rescue use. Understands role of ICS and to initiate or increase with URI or increased trigger exposure. Understands managing triggers. Will call with first sign/onset respiratory illness or increased coughing or shortness of breath. Flu vaccine and pneumonia vaccines up to date. Advise annual flu vaccination 07/09/2024 Nocturia (ICD-10 - R35.1) Advised timed voiding every two hours during the day to train the bladder and reduce nighttime urinary frequency. 07/09/2024 Menopausal and female climacteric states (ICD-10 - N95.1) Discussed adding vaginal estrogen therapy to address urinary frequency and vaginal dryness. Instructed apply it nightly for 2 weeks, then reduce usage to 1-3 times per week Genitourinary syndrome of menopause (GSM) is defined as a collection of symptoms and signs associated with a decrease in estrogen and other sex steroids involving changes to the labia majora/minora, clitoris, vestibule/introi tus, vagina, urethra, and bladder. Symptoms may include vulvovaginal dryness, burning, and irritation; sexual symptoms of lack of lubrication, discomfort or pain, and impaired function; and urinary symptoms of urgency, dysuria, and recurrent urinary tract infections 07/09/2024 Encounter for immunization (ICD-10 - Z23) Imms updated today. AFP strongly encourages routine vaccinations as recommended by the CDC Advisory Committee on Immunization Practices (ACIP). The current immunization schedule is readily available here: https://www.cdc. gov/vaccines/hcp /acip-recs/index .html 07/09/2024 Other Health maintenance flow sheet reveiwed and updated Medical decision-making was shared with the patient, and all questions were addressed. Please excuse any typos or grammatical errors. Contact our office for clarification if needed. We are the medical home for this patient. This visit is part of our ongoing, continuous relationship to manage and coordinate the patient's chronic and acute health conditions. which is essential for ensuring optimal health outcomes through comprehensive and coordinated multidisciplinary care. Plan Of Treatment Medication Medication Name Sig Start Date Stop Date Notes Estradiol 0.1 MG/GM Cream as directed Dayana dimas 3 times per week; Duration: 30 days 07/09/2024 Treatment Notes Assessment Notes Adult physical NORMAL We advise having an annual exam and visit to address age appropriate screening tests including screening for cardiovascular disease, cancers, mood disorders, sexually transmitted infections, and other appropriate conditions based upon age and personal risk factors. We recommend routine vaccines for patient of all ages based on guidance from the CDC Committee on Immunization Practices. https://www.cdc.gov/vaccines/schedules/downl oads/adult/tpxpm-avzqclwl-gdtfzyjp.pdf We encourage exercise as advised by the USPSTF/AAFP: Try to engage in 150 to 300 minutes of moderate physical activity each week. Any increase in activity is beneficial for health, especially for those under the target range. Adding/increasing strength training or incorporating HIIT workouts is important for bone health. Stress management, healthy relationships, quality sleep, and supportive communities are important factors in contributing to success for individual wellness goals. Palpitations EKG done today, reas suring. Will do stress test. Pain foot, right Pending RIGHT 1st MT P fusion on 09/03/24, plan per ortho team Asthma Mild persistent, uncomplicated Tani reassuring. Symptoms stable. Has Albuterol for rescue use. Understands role of ICS and to initiate or increase with URI or increased trigger exposure. Understands managing triggers. Will call with first sign/onset respiratory illness or increased coughing or shortness of breath. Flu vaccine and pneumonia vaccines up to date. Advise annual flu vaccination Nocturia Advised timed voidin g every two hours during the day to train the bladder and reduce nighttime urinary frequency. Menopausal and female climacteric states Discussed adding vaginal estrogen therapy to address urinary frequency and vaginal dryness. Instructed apply it nightly for 2 weeks, then reduce usage to 1-3 times per week Genitourinary syndrome of menopause (GSM) is defined as a collection of symptoms and signs associated with a decrease in estrogen and other sex steroids involving changes to the labia majora/minora, clitoris, vestibule/introitus, vagina, urethra, and bladder. Symptoms may include vulvovaginal dryness, burning, and irritation; sexual symptoms of lack of lubrication, discomfort or pain, and impaired function; and urinary symptoms of urgency, dysuria, and recurrent urinary tract infections Encounter for immunization Imms updated today. AFP strongly encourages routine vaccinations as recommended by the CDC Advisory Committee on Immunization Practices (ACIP). The current immunization schedule is readily available here: https://www.cdc.gov/vaccines/hcp/acip-recs/i ndex.html Other Health maintenance f low sheet reveiwed and updated Pending Test Test Name Order Date Treadmill Stress Test 07/09/2024 Next Appt Details Follow Up: 1 Year, Reason: Provider Name:Deep allen, 02/05/2026 12:00:00 PM, [address], [place], [id number], Provider Name:Deep allen, 08/13/2026 01:30:00 PM, [address], [place], [id number], History and Physical Notes * HPI (History of Present Illness) Category Sub-Category Detail Notes Category Not es Cardiology PALPITATIONS Previous EKG fr om 2010 was also boderline. Would like to recheck. Gastroenterology ABDOMINAL PAIN CONSTIPATION CHANGE IN BOWEL HABITS COLONOSCOPY 07/20/[address] Sands -no polyps. due 2029 Female Reproductive MAMMOGRAM 07/06/22 at [facility]- norm al. Pending 11/25/24 Currently on higher dose of estradiol patch and 100 mg progesterone, reports symptoms improvement, though still experiencing frequent awakenings at night. Reports urinary frequency at night, she wake up frequently to urinate. Has surgical sling. Not using vaginal estrogen. Notes some vaginal dryness PAP SMEAR 06/23/21 (NILM, HPV n eg)- due 2025 Depression Screening PHQ-9 Little inte rest or pleasure in doing things: Not at all Feeling down, depressed, or hopeless: Se veral days Trouble falling or staying a sleep, or sleeping too much: More than half the days Feeling tired or having little energy: N ot at all Poor appetite or overeating: Not at all Feeling bad about yourself-o r that you are a failure or have let yourself or your family down: Not at all Trouble concentrating on thi ngs, such as reading the newspaper or watching television: Nearly every day Moving or speaking so slowly that other people could have noticed. Or the opposite, being so fidgety or restless that you have been moving around a lot more than usual: Not at all Thoughts that you would be b tammi off , or of hurting yourself in some way: Not at all Total Score: 6 Intepretation: Mild Depression Physical Examination Category Sub-Category Detail Notes Section Note s HEENT Head: normocephalic Tympanic membrane(s): clear and flat gabbie aterally Mouth: moist mucus membrane s, no lesions. NECK General: supple Thyroid: Not enlarged Cervical lymph nodes: normal Muscles: normal Carotid bruit: none bilaterally JVD: none EXTREMITIES Edema: no Cyanosis: no Clubbing: no Tremors: no Pulses: 2+ bilateral BACK Spine: normal CHEST Shape and expansion: normal HEART PMI: normal Rhythm: regular Murmurs: no Heart sounds: normal Clicks: no ABDOMEN General: soft, no masses or hepatospl enomegaly, nontender, NABS NEUROLOGICAL cranial nerves Sensory: Normal Motor: Normal Coordination: Normal Reflexes: 2+ Babinski: Negative Gait: Normal MUSCULOSKELETAL General: normal strength and ROM n oted. GENITOURINARY - FEMALE General: deferred, pap not indicated SKIN Moles: benign appearing GENERAL General Appearence: well-appearing, alert and oriented LYMPH NODES Cervical: none Axillary: none LUNGS General: no wheezes or rales. good ai rflow throughout BREASTS General: no masses, tenderness, skin changes, or nipple abnormality Axilla: no lymphadenopathy EYES Conjunctiva: no conjunctival injections. PATITO, EOMI bilaterally Progress Notes * KAILA LARSONHDOB:1965 ([age] yo F)Acc No.[id number]:07/09/2024 Progress Notes Patient: RUBEN PEREZ Provider: Amisha Francois MD :1965 A ge:59 Y S ex:Female Date:07/09/2024 C #:[id number] Address:[address] [place] [address] , [facility], [id number] Pcp:Aline Duffy Patient's Default Facility:[facility] Subjective: * Chief Complaints: * C PE- fuDue for tani??/masPHQ9: 0PAP: 06/23/21 (NILM, HPV neg)- due 2025MAMMO: 07/06/22- due, has scheduled 11/25/24COLONOSCOPY: 07/20 20- due 2030HCP: verified with patientHearing screen: declinesIMMS: flu & covid (consents) * HPI: D epression Screening: PHQ-9 L ittle interest or pleasure in doing things?Not at all F eeling down, depressed, or hopeless S everal days T rouble falling or staying asleep, or sleeping too much M ore than half the days F eeling tired or having little energy N ot at all P oor appetite or overeating N ot at all F eeling bad about yourself-or that you are a failure or have let yourself or your family down N ot at all T rouble concentrating on things, such as reading the newspaper or watching television N early every day M oving or speaking so slowly that other people could have noticed. Or the opposite, being so fidgety or restless that you have been moving around a lot more than usual N ot at all T houghts that you would be better off , or of hurting yourself in some way N ot at all T otal Score 6 I ntepretation M ild Depression I nterim History: Ruben 59 y.o F presents today for annual physical. C ardiology: c/o PALPITATIONS. Previous EKG from 2010 was also boderline. Would like to recheck. P ulmonology: H/o asthma, well managed. Taking S ingulair year-round. N ot on inhalers. G astroenterology: c/o COLONOSCOPY [address] Sands-no polyps. due 2029.? Denies : CHANGE IN BOWEL HABITS. Denies : ABDOMINAL PAIN. Denies : CONSTIPATION. F emale Reproductive: c/o MAMMOGRAM 1 at [facility]- normal. P ending 11/25/24. c /o PAP SMEAR (NILM, HPV neg)- due 2025. Currently on higher dose of estradiol patch and 100 mg progesterone, reports symptoms improvement, though still experiencing frequent awakenings at night. Reports urinary frequency at night, she wake up frequently to urinate. Has surgical sling. Not using vaginal estrogen. Notes some vaginal dryness. M usculoskeletal: Has pending R foot fusion surgery on September [address] Jennifer Bhardwaj at [facility] Has been taking M eloxicam for pain management, which initially really healpful but has since become less effective. w orries about impact of increasing Meloxicam dosage on GI s/e Tried topical diclofenac, applies inconsistently Recommended to complete non-weight bearing for at least 6 weeks post-surgery Plans 4 weeks leave, then followed by 2 weeks telehealth. Has upcoming appt w neuro next month and scheduled for EMG. Past EMG showed borderline results. * ROS: S ee HPI. Other systems reviewed and noncontributory except for as noted above . * Medical History: ORTHO: Jennifer Bhardwaj MD - RIGHT 1st MTP fusion 09/03/24 NEURO: Rafa Mancuso MD Hypothyroid HAND: Ant Mai MD GI: GERD/IBS -- [facility] UROLOGY: Amisha Parson -> Bladder dysfunction (nerve damage after high forceps delivery) -- DERM: Jerzy Casey MD, Dysplastic nevi Asthma, mild persistent Dysthymic disorder Basal Cell CA nose (Sep 2023) Restless legs syndrome joint pains - RIGHT foot, LEFT hand/wrist (2023) menopause on HRT mammo (07/04/22 @ [facility]) BI-RADS 1 PAP SMEAR (06/23/2021): NILM, atrophy, HPV neg Colonoscopy (07/20/2020 at [facility]) - normal. Medical History Verified * Surgical History: abd laparoscopy for endometriosis 1996 umbilical hernia repair 2004 two dysplastic nevi Rectocele repair, sling procedure,paraneal repair-/. 10/06/08 PT at [facility] rehab in [place] 2times/wk Basal Cell removal on face - Dr Etienne 10/2023 Surgical History verified. * Hospitalization/Major Diagno stic Procedure: labor Normal Colonoscopy + EGD ([facility] in [facility]) 05/2006 Hospitalization Verified. * Family History: F ather: alive, (lives in [place])prostate cancer. YUNIEL. M other: alive, Crohns and Barretts, HTN (lives in [place] with Ruben's sister, previously [place]) ). dementia 2022. M aternal Grand Father: melanoma. S iblings: sister is onion farmer in [place],hx Hep C,hypothyroid. brother in [place] has GERD. C hildren: daughter has asthma, primary ciliary dyskinesia and eating disorder. 1 brother(s) , 1 sister(s) . 2 son(s) , 1 daughter(s) . . F amily History Verified.. sister breast cancer matggf suicide - gun brother bipolar-= depakote or lamotrigine- stable again sister: MS Mother: dementia diagnosed within last 2 yrs daughter auditory processing stuff- adhd. * Social History: L alek: in [place] w and 2 sons, 1 daughter. S moking Smart Form A re you a:: nonsmoker. S moking: no . A lcohol: About 3 drinks per wk-glass of wine. M arital Status: . C arnold: Daughter, sons. 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 R eligion: advent. E xercise: yoga class 2-3xweek and home program,rides horse 3x weekly hikes 1-2x week or swims regularly. S exually active: no problems. P ets: Dogs:. S ocial History Verified. d og w seizure disorder. * Medications: T akingMeloxicam 15 MG Tablet 1 tablet Orally Once a day Vitamin D 2000 IU 1 TAB PO QD Levothyroxine Sodium 150 MCG Tablet 1 tab(s) orally once a day , Notes to Pharmacist: ok to fill immediatelyCyclobenzaprine HCl 5 MG Tablet 1 tab(s) orally 3 times a day , Notes to Pharmacist: prnDiclofenac Sodium 1 % Gel as directed applied topically 4 times a day as needed DULoxetine HCl 20 MG Capsule Delayed Release Particles TAKE 1 CAPSULE BY MOUTH EVERY DAY FOR 90 DAYS Estradiol 0.05 MG/24HR Patch Twice Weekly 1 patch to skin Transdermal Two times a Week Singulair 10 MG Tablet TAKE 1 TABLET BY MOUTH EVERY EVENING Progesterone 100 MG Capsule 1 cap(s) orally once a day (at bedtime) Taking Meloxicam 15 MG Tablet 1 tablet Orally Once a day Taking Vitamin D 2000 IU 1 TAB PO QD Taking Levothyroxine Sodium 150 MCG Tablet 1 tab(s) orally once a day , Notes to Pharmacist: ok to fill immediatelyTaking Cyclobenzaprine HCl 5 MG Tablet 1 tab(s) orally 3 times a day , Notes to Pharmacist: prnTaking Diclofenac Sodium 1 % Gel as directed applied topically 4 times a day as needed Taking DULoxetine HCl 20 MG Capsule Delayed Release Particles TAKE 1 CAPSULE BY MOUTH EVERY DAY FOR 90 DAYS Taking Estradiol 0.05 MG/24HR Patch Twice Weekly 1 patch to skin Transdermal Two times a Week Taking Singulair 10 MG Tablet TAKE 1 TABLET BY MOUTH EVERY EVENING Taking Progesterone 100 MG Capsule 1 cap(s) orally once a day (at bedtime) Not-Taking/PRNlamoTRIgine 100 MG Tablet 1 tab(s) orally once a day Medication List reviewed and reconciled with the patientNot-Taking/PRN lamoTRIgine 100 MG Tablet 1 tab(s) orally once a day Medication List reviewed and reconciled with the patient * Allergies: C odeine: rashyesAllergies Verified. Objective: * Vitals: I nitials:mp, Ht: 67.5 in, Wt: 160.7 lbs, BMI: 24.79 Index, Temp: 96.8 F, Temp Route: T, HR: 75 /min, PulseOx: 99, BP: 124/86 mm Hg, PHQ-9: 6. * P ast Orders: Lab:LIPID PANEL * Collection Date 07/04/2023 06/22/2022 03/11/2019 Collection Time 11:37 AM 11:32 AM 10:48 AM Order Date 07/04/2023 06/22/2022 03/11/2019 LDL CHOLESTEROL, CALCULATED 70 (Ref Range: (0-130) MG/DL) 85 (Ref Range: (0-130) MG/DL) 70 (Ref Range: (0-130) MG/DL) CHOLESTEROL, TOTAL 157 (Ref Range: (<200) MG/DL) 170 (Ref Range: (<200) MG/DL) 161 (Ref Range: (<200) MG/DL) HDL CHOL 66 (Ref Range: (>39) MG/DL) 64 (Ref Range: (>39) MG/DL) 69 (Ref Range: (>39) MG/DL) NON HDL CHOLESTEROL (CALC) 91 (Ref Range: (<160) MG/DL) 106 (Ref Range: (<160) MG/DL) 92 (Ref Range: (<160) MG/DL) TRIGLYCERIDE 103 (Ref Range: (<150) MG/DL) 106 (Ref Range: (<150) MG/DL) 112 (Ref Range: (<150) MG/DL) * Physical Examination: G ENERAL: General Appearence: w ell-appearing, alert and oriented.? S KIN: Moles: b enign appearing. L YMPH NODES: Cervical: n one. Axillary: n one. E YES: Conjunctiva: n o conjunctival injections. PATITO, EOMI bilaterally. H EENT: Head: n ormocephalic. Tympanic membrane(s): c lear and flat bilaterally. Mouth: m oist mucus membranes, no lesions. . N CHIO: General: s upple. Thyroid: N ot enlarged. Cervical lymph nodes: n ormal. Muscles: n ormal. Carotid bruit: n one bilaterally. JVD: n one. B REASTS: General: n o masses, tenderness, skin changes, or nipple abnormality. Axilla: n o lymphadenopathy. C HEST: Shape and expansion: n ormal. H EART: PMI: n ormal. Rhythm: r egular. Murmurs: n o. Heart sounds: n ormal. Clicks: n o. L UNGS: General: n o wheezes or rales. good airflow throughout.? A BDOMEN: General: s oft, no masses or hepatosplenomegaly, nontender, NABS. B ACK: Spine: n ormal. G ENITOURINARY - FEMALE: General: d eferred, pap not indicated. E XTREMITIES: Edema: n o. Cyanosis: n o. Clubbing: n o. Tremors: n o. Pulses: 2 + bilateral. M USCULOSKELETAL: General: n ormal strength and ROM noted.. N EUROLOGICAL: Sensory: N ormal. Motor: N ormal. Coordination: N ormal. Reflexes: 2 +. Babinski: N egative. Gait: N ormal. Assessment: * Assessment: 1. A dult physical NORMAL - Z00.00 (Primary) 2 . P alpitations - R00.2 3 . P ain foot, right - M79.671 4 . A sthma Mild persistent, uncomplicated - J45.30 5 . N octuria - R35.1 6 . M enopausal and female climacteric states - N95.1 7 . E ncounter for immunization - Z23 ? Plan: * Treatment: 2. P alpitations L AB: ekg Value Reference Range H eart Rate 65 * S ystolic Blood Pressure 124 * D iastolic Blood Pressure 86 * P R Interval 146 * Q T Interval 396 * Q Tc Interval 404 * Q RS Duration 80 * P Wave Liberty 50 * Q rsWave [place] 52 * T Wave [place] 55 ?Imaging: Treadmill Stress Test Notes: EKG done today, reassuring. Will do stress test. ??3.?Pain foot, right? Notes: Pending RIGHT 1st MTP fusion on 09/03/24, plan per ortho team??4.?Asthma Mild persistent, uncomplicated?LAB: Spirometry Notes: [place] reassuring. Symptoms stable. Has Albuterol for rescue use. Understands role of ICS and to initiate or increase with URI or increased trigger exposure. Understands managing triggers. Will call with first sign/onset respiratory illness or increased coughing orshortness of breath. Flu vaccine and pneumonia vaccines up to date. Advise annual flu vaccination ?5.?Nocturia? Notes: Advised timed voiding every two hours during the day to train the bladder and reduce nighttime urinary frequency.??6.?Menopausal and female climacteric states? Start Estradiol Cream, 0.1 MG/GM, as directed, Vaginal, 3 times per week 1 g nightly x 2 weeks, then 2-3 x per week, 30 days, 42.5 g, Refills 5.?? Notes: Discussed adding?vaginal estrogen therapy?to address urinary frequency and vaginaldryness.? Instructed apply it nightly for 2 weeks, then reduce usage to 1-3 times per week Genitourinary syndrome of menopause (GSM) is defined as a collection of symptoms and signs associated with a decrease in estrogen and other sex steroids involving changes to the labia majora/minora, clitoris, vestibule/introitus, vagina, urethra, and bladder. Symptoms may include vulvovaginal dryness, burning, and irritation; sexual symptoms of lack of lubrication, discomfort or pain, and impaired function; and urinary symptoms of urgency, dysuria, and recurrent urinary tract infections ??7.?Encounter for immunization? Notes: Imms updated today.? AFP strongly encourages routine vaccinations as recommended by the[facility] Advisory Committee on Immunization Practices (ACIP). The current immunization schedule is readily available here: https://www.cdc.gov/vaccines/hcp/acip-recs/index.html??8.?Others? Notes: Health maintenance flow sheet reveiwed and updated?? Clinical Notes: Medical decision-making was shared with the patient, and all questions were addressed. Please excuse any typos or grammatical errors. Contact our office for clarification if needed. ?We are the medical home for this patient. This visit is part of our ongoing, continuous relationship to manage and coordinate the patient's chronic and acute health conditions. which is essential for ensuring optimal health outcomes through comprehensive and coordinated multidisciplinary care. ?? * Immunizations: COVID VACC 19+ PFIZER PURCHASED : 0.3 mL (Route: Intramuscular) given by Salima Newton MA on Right Deltoid (Encounter for immunization) FLUBLOK PURCHASED : 0.5 mL (Route: Intramuscular) given by Salima Newton MA on Right Deltoid (Encounter for immunization) * Procedure Codes: 9 6127 PHQ9 or ADHD [id number] SPIROMETRY,[id number] MOUTHPIECE FOR BREATHING [id number] EKG * Preventive Medicine: Counseling: D iet X . I njury prevention X . E xercise X . S exual practices X . D omestic violence X . S unscreen X . H ealth d iscuss perimenopausal signs and symptoms.? n o risk factors identified. * Follow Up: 1 Year Billing Information: * Visit Code: 22419 Preventive Care Est Pt. Age 40-64. 41984 Office Visit, Established Pt. * Procedure Codes: 99983 PHQ9 or ADHD scale. 02875 SPIROMETRY,COMPLETE. A4617 MOUTHPIECE FOR BREATHING TESTS. 00569 EKG. Care Plan Details* * Electronic signature of Jefferson Francois MD on 09/11/2025 at 06:39 PM EST Sign off status: Pending * Provider: Amisha Francois MD Date: Generated for Mary Anne hackett/Amaya/George on: 11/12/2024 06:39 PM EST
--- OUTSIDE RECORDS SUMMARY | 2025-01-23 06:45 | XMS_ITS ---
Author Organization [facility] Address [address] [place] [address] Care Team Providers Care Tick Sewer Name Role Phone Aline Duffy Primary Care Provider [phone] Deep Francois [phone] REASON FOR VISIT f/u meds (doxy) Encounters Encounter Location Date Provider Diagnosis [facility] [address] [place] [address] 01/23/2025 Deep Francois Plan Of Treatment Next Appt Details Provider Name:Deep allen, 02/05/2026 12:00:00 PM, [address] [place], [address], Provider Name:Deep allen, 08/13/2026 01:30:00 PM, [address] [place], [address], Progress Notes * FLORENTIN LARSONOB:1965 ([age] yo F)Acc No.[id number]:01/23/2025 Patient: KAILA PEREZH Provider: Amisha Francois MD :1965 A ge:60 Y S ex:Female Date:01/23/2025 C HN#:[id number] Address:[address], [place] Pcp:Aline Duffy Patient's Default Facility:A [facility] Subjective: * Chief Complaints: * F /u meds (doxy) * Electronic signature of Jefferson Francois MD on 09/11/2025 at 06:38 PM EST Sign off status: Pending * Provider: Amisha Francois MD Date: 0 01/23/2025 Generated for Mary Anne hackett/Amaya/George on: 1 11/12/2024 06:38 PM EST
--- OUTSIDE RECORDS SUMMARY | 2025-07-17 06:00 | XMS_ITS ---
Author Organization [facility] Address [address] [place] [address] Care Team Providers Care Teacher Of The Hearing Impaired Name Role Phone Aline Duffy Primary Care Provider Deep Francois [phone] REASON FOR VISIT CPE Encounters Encounter Location Date Provider Diagnosis [facility] [address] [place] [address] [place] [address] 07/17/2025 Deep Francois Plan Of Treatment Next Appt Details Provider Name:Deep allen, 02/05/2026 12:00:00 PM, [address] [place], [address], Provider Name:Deep allen, 08/13/2026 01:30:00 PM, [address] [place], [address], Progress Notes * FLORENTIN LARSONOB:1965 ([age] yo F)Acc No.[id number]:07/17/2025 Progress Notes Patient: KAILA PEREZH Provider: Amisha Francois MD :1965 A ge:60 Y S ex:Female Date:07/17/2025 C HN#:[id number] Address:[address], [place] Pcp:Aline Duffy Patient's Default Facility:A [facility] Subjective: * Chief Complaints: * C PE Care Plan Details* * Electronic signature of Jefferson Francois MD on 09/11/2025 at 06:38 PM EST Sign off status: Pending * Provider: Amisha Francois MD Date: 1 Generated for Mary Anne hackett/Amaya/George on: 1 11/12/2024 06:38 PM EST
[2025-09-11 14:33] VITALS: BMI 22.8
--- NOTE | 2025-09-11 14:33 | MHC.OFFVIS ---
Vital Signs 09/11/25 14:33 Height 5 ft 8 in Weight 150 lb BMI 22.8 Intake Visit Reasons: f/u right hallux lateral border PNA Intake Note: Herminia is a 60 year old female who presents today for a follow up on her right hallux lateral border PNA. Patient reports everything is going well and she currently is not experiencing any pain at this time. She states she has no concerns at this time. Allergies codeine Allergy (Verified 09/11/25 14:34) Rash HPI Comments Details: The patient is a 60 year old female presenting for a follow-up S/P right hallux lateral border PNA. Patient states that she has been compliant with the aftercare instructions. She states she has noticed improvement in her symptoms since the procedure. She denies any purulence, drainage, or bleeding from the site. She denies any new pedal injuries. She denies any other pedal concerns. [facility] Medical History (Updated 08/31/25 @ 10:45 by Ivone Reis DPM) Pain of right great toe Cellulitis of great toe, right Nail disorder Ingrowing nail, right great toe Review of Systems Const Details: - Integumentary: Healed PNA site to the lateral border of the right hallux. All systems reviewed & are unremarkable except as noted in HPI and below Physical Exam Vital Signs: BMI result Body Mass Index 22.8 Extrem Other: Right lower extremity focused physical exam: Derm: Healed PNA site to the lateral border of the right hallux. No drainage, purulence, or bleeding noted. Slight incurvation noted to the medial nail border of the right hallux. Remaining toenails within normal limits. No maceration or hyperkeratotic areas noted. No erythema or discoloration noted. No clinical signs of infection noted. Vascular: DP/PT pulses palpable. Capillary refill time less than 3 seconds. Temperature gradient warm to warm. No varicosities noted. No edema noted to the right hallux. Neuro: Protective sensation is grossly intact. MSK: No Pain on palpation to the lateral border of the right hallux due to ingrown nail. No pain on palpation to the medial border of the right hallux. Range of motion of the forefoot, hindfoot, and ankle within normal limits. No crepitus or fluctuance noted. Non-antalgic gait unassisted noted. No other gross abnormalities noted. Assessment & Plan Assessment & Plan (1) Ingrowing nail, right great toe: Code(s): L60.0 - Ingrowing nail Category: Medical (2) Nail disorder: Code(s): L60.9 - Nail disorder, unspecified Category: Medical (3) Cellulitis of great toe, right: Code(s): L03.031 - Cellulitis of right toe Category: Medical (4) Pain of right great toe: Code(s): M79.674 - Pain in right toe(s) Category: Medical Plan Patient was informed and verbally consented to the use of an ambient scribe for clinic note documentation during this visit. I reviewed the status of the patient's toe following a partial nail avulsion. I confirmed that the area has healed well, with no signs of infection such as purulent drainage, erythema, or edema, and no tenderness on examination. I advised the patient that she no longer needs to perform aftercare, including the use of Epsom salt soaks, Neosporin, or routine bandaging. I recommended using a Band-Aid for protection when wearing narrow shoes to prevent friction. We discussed anticipatory guidance, including soaking the toe in Epsom salt water if any soreness develops. I instructed her to call if pain persists or if drainage appears, in which case antibiotics could be prescribed. I also mentioned that if the ingrown nail recurs, a chemical procedure is an option to prevent that section of the nail from growing back. The patient will follow up as needed. - The patient can discontinue all aftercare, including Epson salt soaks, Neosporin, and routine use of Band-Aids, as the toe has healed well. - It was recommended to apply a Band-Aid for protection when wearing narrower dress shoes to prevent friction. - Advised patient to wear supportive shoe gear, avoid tight-fitting shoes, and avoid barefoot walking. - If the patient experiences any soreness, she should soak her foot in Epsom salt water. - If pain persists after a few days of soaking, or if any drainage occurs, she should call the office for re-evaluation and possible antibiotics. - A chemical procedure to prevent regrowth of the problematic nail section was discussed as a future option if the ingrown toenail recurs. RTC PRN. Coding Level of Care Code Est Pt Level 3 (58492) Diagnoses Ingrowing nail, right great toe L60.0 Nail disorder L60.9 Cellulitis of great toe, right L03.031 Pain of right great toe M79.674 Time Spent (min) 20
--- OUTSIDE RECORDS SUMMARY | 2025-09-11 18:39 | XMS_ITS | Encounter Summary ---
Author Organization [facility] Address [address] [place] [address] Phone Care Team Providers Care Juke Box Mechanic Name Role Phone Aline Duffy MD Unavailable [phone] Aline Duffy MD Primary Care Provider + Deep Francois MD Primary Care Provider + [phone] Encounter Details Date Type Department Care Team (Late st Contact Info) Description 10/19/2020 Transcribe Orders Virtual Department [address] [place] [address] Aline Duffy MD [address] [place] [phone] Menorrhagia with regular cycle (Primary Dx) Social [...] No adnexal masses. No free fluid in [id number]. Duplex scan of ovarian blood flow visualization withutilization of color and spectral doppler. IMPRESSION: 1.Chronic uterine fibroid. 2.Normal ovaries and endometrium. us Aline Duffy MD IMG US PELVIS Final Re sult documented in this encounter Visit Diagnoses Diagnosis Menorrhagia with regular cycle- Primary Menorrhagia with regular cycle documented in this encounter Care Teams Juke Box Mechanic Relationship Specialty Start Date End Date Aline Duffy MD [address] [place] [phone] PCP - General Family Medicine 03/15/19 11/24/24 Deep Francois MD [address] [place] [phone] [email or web address] PCP - General Family Medicine 11/25/24 Aline Duffy MD [address] [place] [phone] [email or web address] Insurance Assigned Provider 12/30/23 documented as of this encounter Additional Source Comments The information contained in this document represents components of the legal health record. It is not the complete legal health record.[facility]
--- OUTSIDE RECORDS SUMMARY | 2025-09-11 18:39 | XMS_ITS | Encounter Summary ---
Author Organization [facility] Address [address] [place] [address] Phone Care Team Providers Care Car Record Clerk Name Role Phone Aline Duffy MD Unavailable [phone] Aline Duffy MD Primary Care Provider + Deep Francois MD Primary Care Provider + [phone] Encounter Details Date Type Department Care Team (Late st Contact Info) Description 06/24/2022 Procedure Pass [address] [place] [address] Social History Tobacco Use Types Packs/Day Years [...] on filedocumented in this encounter Care Teams Car Record Clerk Relationship Specialty Start Date End Date Aline Duffy MD [address] [place] [phone] [email or web address] PCP - General Family Medicine 03/15/19 11/24/24 Deep Francois MD [address] [place] [phone] [email or web address] PCP - General Family Medicine 11/25/24 Aline Duffy MD [address] [place] [phone] [email or web address] Insurance Assigned Provider 12/30/23 documented as of this encounter Additional Source Comments The information contained in this document represents components of the legal health record. It is not the complete legal health record.[facility]
--- OUTSIDE RECORDS SUMMARY | 2025-09-11 18:39 | XMS_ITS | Encounter Summary ---
Author Organization [facility] Address [address] [place] [address] Phone Care Team Providers Care Brick Setter Operator Name Role Phone Aline Duffy MD Unavailable [phone] Aline Duffy MD Primary Care Provider + Deep Francois MD Primary Care Provider + [phone] Encounter Details Date Type Department Care Team (Late st Contact Info) Description 06/20/2024 Transcribe Orders Virtual Department [address] [place] [address] Deep Francois MD [address] [place] [phone] [email or web address] Breast screening (Primary Dx) Social History Tobacco [...] unspecified documented in this encounter Care Teams Brick Setter Operator Relationship Specialty Start Date End Date Aline Duffy MD [address] [place] [phone] [email or web address] PCP - General Family Medicine 03/15/19 11/24/24 Deep Francois MD [address] [place] [phone] PCP - General Family Medicine 11/25/24 Aline Duffy MD [address] [place] [phone] [email or web address] Insurance Assigned Provider 12/30/23 documented as of this encounter Additional Source Comments The information contained in this document represents components of the legal health record. It is not the complete legal health record.[facility]
--- OUTSIDE RECORDS SUMMARY | 2025-09-11 18:39 | XMS_ITS | Patient Health Record ---
[facility] Organization [facility] melissa Address [address] [place] [address] Care Team Providers Care Food Processor Name Role Phone Aline Duffy Primary Care Provider [phone] Deep Francois Unavailable [phone] BeccaRock ramirez Unavailable [phone] Allergies Allergen (clinical drug ingredient) Drug/Non Drug [...] malignant neoplasm of skin (Z12.83) Referral Organization [facility] Pr actice Referring Provider First Name Deep Referring Provider Last Name Priscila Referring Provider Speciality [facility] Pra ctice Referred Provider Arun Zavala Referred Provider Specialty Dermatology General Notes Acacia Go 01/24 02:15:10 PM > referral faxed to: [phone], Authorization Status: CompleteReason: Decisioned, Decision: ApprovedReference#: [id number], Procedure Status: [id number]:Approved Clinical Notes Provider Name: Arun Rivera, Provider ID Number: , Provider UPIN: use Dr Casey's NPI, Provider , Provider Facility: , Provider Speciality: Dermatology, Address1: [address] [place] [address], Address2: [facility], Zip: [place], [address], , Appt. Date/Time: , Referral Priority Routine Reason mohs procedure Dr. Rafa Barbosa, Diagnosis 1 Basal cell carcinoma of skin of other part of trunk (C44.519) Referral Organization [facility] actice Referring Provider First Name Deep Referring Provider Last Name Adititiffany [facility] Provider YULIYA SIMPSON General Notes Acacia Go 12/24 07:39:17 AM > referral faxed to: [phone], Authorization Status: CompleteReason: Decisioned, Decision: ApprovedReference#: [id number], Procedure Status: [id number]:Approved Clinical Notes Provider Name: [facility], Provider ID Number: , Provider UPIN: Reg/Sched, Provider NPI: , Provider Facility: , Provider Speciality: , Address1: [address] [place] [address], Address2: [address], [facility], Zip: [place], [address], , Appt. Date/Time: , Referral Priority Routine Reason For mohs surgery [facility] Dr. Glenis Etienne, Diagnosis 1 Basal cell carcinoma of skin of other part of trunk (C44.519) Referral Organization [facility] actice Referring Provider First Name Deep Referring Provider Last Name Priscila Referring Provider [facility] Referred Provider Specialty Dermatology General Notes Dr. Glenis Etienne, , [facility], [facility], [address] [place] [address], [address], [place], [place], phone: [phone], fax: [phone], Acacia Go 02/06/2025 08:32:50 AM > referral faxed to: [phone], Authorization Status: CompleteReason: Decisioned, Decision: ApprovedReference#: [id number], Procedure Status: [id number]:Approved Referral Priority Routine Reason For Ingrown Right Gr eat toenail Please fax back appropriate NPI needed to obtain an insurance auth Diagnosis 1 Ingrown toenail (L60 .0) Referral Organization [facility] Riaz robledo Referring Provider First Name Deep Referring Provider Last Name Priscila Referring Provider [facility] chuck Referred Provider [facility] Podiat[facility], [place] Referred Provider Specialty Podiatry General Notes ingrown right great toenail and I would like to go to Dr. Ivone Reis at [facility] podiatry, Acacia Go 08/19/2025 08:59:37 AM EST > ref faxed to: [phone] Clinical Notes Name [facility] Podiatry, [facility], Address [address] [place] [address], [address], [place] [address], Referral Priority Routine Reason For a skin check zachary Gonzalez, , bCBS auth code: [id number] Diagnosis 1 Encounter for screen ing for malignant neoplasm of skin (Z12.83) Referral Organization [facility] Riaz actsvitlana Referring Provider First Name Deep Referring Provider Last Name Priscila Referring Provider [facility] ctsvitlana Referred Provider Deborah Finch atjake Referred Provider Specialty Dermatology General Notes Authorization Status : CompleteReason: Decisioned, Decision: ApprovedReference#: [id number], Procedure Status: [id number]:Approved, Acacia Go 08/26/2025 11:19:42 AM EST > ref faxed to: [phone] Referral Priority Routine Medications Medication SIG (Take, [...] IM Intramuscular 06/22/2022 Administered Covid Vaccine Booster (Lang-8), History Unknown 07/03/2021 Administered COVID-19 Vaccine (Lang-8), History Unknown 09/12/2020 Administered COVID-19 Vaccine (Lang-8), History Unknown 10/03/2020 Administered Flu Vaccine; History [...] vaccine Unknown 10/20/2011 Administered is going to [facility] to see if it was given at her office, signed refusal Refusal, Td/Tdap vaccine Unknown 11/06/2013 Administered is going to [facility] to see if it was given at her office, signed refusal Shingrix, history Unknown 12/01/2022 Administered Shingrix, history Unknown 06/22/2025 Administered Td vaccine, state Unknown 02/23/1993 Administered Td vaccine, state Unknown 09/25/2001 Administered Tdap Adacel,purchased IM Intramuscular 09/23/2009 Administered TDAP history Unknown 01/28/2019 Administered Social History Social History Additional Details Category Social Info Options Details Social History 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 Alcohol: About 3 drinks p er wk-glass of wine Sexually active: no problems Exercise: yoga class 2-3xweek and home program, rides horse 3x weekly hikes 1-2x week or swims regularly Marital Status: Children: Daughter, sons Pets: Dogs: Pentecostalism: hoahaoism lives in [facility] and and 2 sons, 1 daughter Section Notes: dog w seizure disorder healthy diet fun--likes swimming,hiking,horsebackriding enjoys reading healthy diet fun--likes swimming,hiking,horsebackriding enjoys reading huge stressors huge stressors huge stressors huge stressors dog [...] now enjoys reading healthy diet fun--likes swimming,hiking,horsebackriding enjoys [...] w seizure disorder huge stressors huge stressors healthy diet fun--likes [...] Status Risk Notes Problem Gastroesophageal reflux disease (616401598) GERD (K21.9) Active confirmed Problem Hypothyroidism (01664371) Hypothyroidism (E03.9) Active confirmed Problem Basal cell carcinoma of nose (456639208) Basal cell carcinoma of skin of nose (C44.311) Active confirmed Problem Basal cell carcinoma of truncal skin (247532819) Basal cell carcinoma of skin of other part of trunk (C44.519) Active confirmed Problem Hypothyroidism (02540792) Hypothyroidism other specified (E03.8) Active confirmed Problem Estrogen excess (16060906) Estrogen excess (E28.0) Active confirmed Problem Vitamin D deficiency (00007017) Vitamin D deficiency, unspecified (E55.9) Active confirmed Problem Cyclothymic disorder (27836787) Cyclothymic disorder (F34.0) Active confirmed Problem Mononeuropathy o f left upper limb, unspecified (G56.92) Active confirmed Problem Uncomplicated mild persistent asthma (808171713) Asthma Mild persistent, uncomplicated (J45.30) Active confirmed Problem Solitary sacroiliitis (916663393) Sacroiliitis, not elsewhere classified (M46.1) Active confirmed Problem Herniation of rectum into vagina (529311539) Rectocele (N81.6) Active confirmed Problem Endometrial hyperplasia (291092271) Endometrial hyperplasia, unspecified (N85.00) Active confirmed Problem Postmenopausal bleeding (12181968) Postmenopausal bleeding (N95.0) Active confirmed Problem Menopause (776828164) Menopausal and female climacteric states (N95.1) Active confirmed Problem Attention deficit hyperactivity disorder (257118376) ADHD, combined type (F90.2) Active confirmed Problem Urinary incontinence (897569242) Urinary incontinence, unspecified (R32) Active confirmed Problem Menorrhagia (259551443) Menorrhagia (N92.0) Active confirmed Problem Allergic rhinitis caused by pollen (06009237) Allergy environmental (J30.1) Active confirmed Problem Generalized anxiety disorder (81553183) Generalized anxiety disorder (F41.1) Active confirmed Problem Poor concentration (finding) (01522551) Concentration deficit (R41.840) Active confirmed Problem Constipation (31708894) Constipation NOS (K59.00) Active confirmed Problem Paresthesia (finding) (78587934) Paresthesias (R20.2) Active confirmed Problem Mild cognitive disorder (549107440) Mild cognitive impairment of uncertain or unknown etiology (G31.84) Active confirmed Vital Signs Temperature 98.0 degrees Fahrenheit 07/31/2025 Oximetry 97 07/31/2025 Blood pressure diastolic 78 mm Hg 07/31/2025 Height 67.5 in 07/31/2025 Blood pressure systolic 110 mm Hg 07/31/2025 Weight 169.4 lbs 07/31/2025 BMI 26.14 kg/m2 07/31/2025 Encounters Encounter Location Date Provider Diagnosis [place] [address] [place] [address] 12/16/2024 Rock Astudillo Basal cell carcinoma of skin of other part of trunk C44.519 Formerly [facility], [facility] [address] [place] [address] 02/26/2025 Deep Francois Basal cell carcinoma of skin of other part of trunk C44.519 ; Fatigue R53.83 ; ADHD, combined type F90.2 and Menopausal and female climacteric states N95.1 [facility] [address] [place] [address] 07/31/2025 Deep Francois Adult physical SMITHA L [...] C44.311 and Vitamin D deficiency, unspecified E55.9 [place] [address] [place] [address] 10/04/2024 Deep Francois [place] [address] [place] [address] 10/30/2024 Deep Francois [place] [address] [place] [address] 11/29/2024 Deep Francois [place] [address] [place] [address] 12/11/2024 Deep Francois [place] [address] [place] [address] 12/16/2024 Aline Duffy [place] [address] [place] [address] 01/02/2025 Aline [place] [address] [place] [address] 06/02/2025 Aline Duffy [place] [address] [place] [address] 08/19/2025 Aline Duffy [place] [address] [place] [address] 12/30/2024 Deep Francois [place] [address] [place] [address] 02/05/2025 Deep Francois [place] [address] [place] [address] 02/18/2025 Deep Francois [place] [address] [place] [address] 03/07/2025 Deep Francois Pain Neck M54.2 [place] [address] [place] [address] 06/03/2025 Aline Duffy [place] [address] [place] [address] 08/17/2025 Deep Francois Assessments Encounter Date Diagnosis [...] [facility] - Follow up with clinical assoc as needed for any new or changing [...] can learn more here: https://nutrition facts.org/video/s oy-phytoestrogens -noq-xmmoakhlc-te t-flashes/ 07/31/2025 Encounter for screening for depression [...] those on MHT. https://www.uspre ventiveservicesta skforce.org/uspst f/recommendation/ bkgcox-upqvaz-kin eening. history imparts a reduction in cancer risk over the general population by 4.3% for every 12 months of . A whole food plant-based diet and avoidance of alcohol are additional modifiable risk reduction strategies. Regular exercise is also proven to reduce risk. 07/31/2025 Encounter for screening for malignant neoplasm of colon (ICD-10 - Z12.11) Is up to date. The [place] [employer] advises screening for [...] Avoid tanning beds. Additional information here: www.aad.org/publi c/migi-yehf-cozvj r/znppv-fabzy-dpi n-cancer/prevent/ lnm-on-hpzsgl-a-s unscreen, www.skincancerpre vention.org, www.skincancer.or g/index.php 07/31/2025 Disappearance [...] at a convenient location, such as the [facility] in [place]. Medical decision-making was shared with the patient, [...] annual screening 04/2016 Mammogram, routine annual screening 02/23 Mammogram, routine annual screening 09/26 Mammogram, routine annual screening 02/2013 Mammogram, routine annual screening 09/26 Mammogram, routine annual screening 05/27 -PARVOVIRUS B-19 ANTIBODIES (IGG, IGM) 0 03/19/2011 -TSH 12/03/2007 -TSH 06/06/2012 FERRITIN 06/02/2015 IRON & TIBC 06/02/2015 HEMOGLOBIN A1C 09/30/2021 HEMOGLOBIN A1C 06/17/2021 COMPREHENSIVE METABOLIC PANL 06/17/2021 COMPREHENSIVE METABOLIC PANL 09/30/2021 COMPREHENSIVE METABOLIC PANL 02/17/2015 LIPID PANEL 02/17/2015 LIPID PANEL 09/30/2021 LIPID PANEL 06/17/2021 TSH WITH REFLEX TO T4 06/17/2021 TSH WITH REFLEX TO T4 01/31/2023 TSH WITH REFLEX TO T4 02/17/2015 TSH 10/03/2016 Vitamin D25 OH 06/17/2021 Vitamin D25 OH 09/30/2021 Vitamin D25 OH 03/21/2024 CBC 02/17/2015 CBC AUTO DIFF 06/17/2021 Ultrasound : Pelvis and Endovag 08/03/20 THYROID PANEL 07/13/2016 COMP MET PANEL 05/25/2020 Free T3 05/25/2020 Sedimentation rate (ESR) 05/25/2020 Kaitlin Screen Only, Serum 03/21/2024 CRP 05/25/2020 Free T4 05/25/2020 TSH 05/25/2020 CBC AND DIFFERENTIAL 05/25/2020 Treadmill Stress Test 07/09/2024 Vitamin D, 57-[id number] 07/31/2025 Comprehensive Metabolic Panel (046798, [facility]) 07/31/2025 Lipid Panel-[id number] 07/31/2025 CBC with Diff, Platelet, NLR-[id number] 02/2025 HSCRP 03/21/2024 HSCRP 07/31/2025 TSH reflex to T4 07/31/2025 Hemoglobin A1c 07/31/2025 Future Test Test Name Order Date -CRP, High Sensitivity (HSCRP) 0 COMPLETE BLOOD COUNT 10/07/2009 -LIPID PANEL 10/07/2009 -TSH 10/07/2009 COMPREHENSIVE METABOLIC PANL -27205 09/25 Urinalysis, Complete (5463 NOHO) 010 Next Appt Details Provider Name:Deep allen, 02/05/2026 12:00:00 PM, [address] [place], [address], Provider Name:Deep allen, 08/13/2026 01:30:00 PM, [address], [place], [address], Insurance Providers Payer Name Payer Address Payer Phone Subscriber Number Group Number Insured Name Patient Relationship to Insured Coverage Start Date [facility]age End Date [facility] [address] [place] [address] [id number] RUBEN LARSON Self - patient is [...] (Sep 2023), chest (Oct 2024), Dysplastic nevi PODIATRY: Ivone Reis, DPM Hypothyroid Asthma, mild persistent Dysthymic disorder Restless legs syndrome G25.81 joint pains - RIGHT foot, LEFT hand/wris t (2023) menopause on HRT mammo (07/04/22 @ [facility]) BI-RADS 1 PAP SMEAR (06/23/2021): NILM, atrophy, HP V neg Colonoscopy (07/20/2020 at [facility]) - normal . Surgical History Surgery Date(Month/Year) abd laparoscopy for endometriosis 1996 umbilical hernia repair 2004 two dysplastic nevi Rectocele repair, sling proc edure,paraneal repair-/. 10/06/08 PT at [facility] rehab in [place] 2times/wk Basal Cell removal on face - Dr Etienne 11/14 23 Hospitalization History Reason Date(Month/Year) Normal Colonoscopy + EGD ([facility]) 05/2006 labor
--- OUTSIDE RECORDS SUMMARY | 2025-09-11 18:39 | XMS_ITS | Data Portability ---
Author Organization [facility] tidy, [place] Address [address] [place] [address] DEION Valero KHALIDA CHAVEZ [address] Care Team Providers Care Community Service Aide Name Role Phone [facility] [employer] OTHER FAISAL AGUDELO Primary Care Provider Assessment Encounter Date Assessment Date Assessment LastModified by Organization Details LastModified Time 07/29/2024 07/29/2024 IMPRESSION: ~nset of progressive left greater than right hand weakness and clumsiness; ~summer 2023 onset thigh aching/weakness and subsequent fatigue with robust exertion. She has had appointment with hand surgery who have told her that perhaps this is carpal tunnel syndrome as previous electrodiagnostic studies ~2010 had a suggestion of this electrodiagnosis. They are planning repeat EMG & nerve conduction studies in 2024. Carpal tunnel syndrome has support from her history and neurological exam today T inel's sign at the wrist elicits numbness into fingers that feels like numbness she sometimes gets at the end of the day or with bike riding. She does not have a feeling of numbness when she feels clumsy and putting on her jewelry, however. The achiness that she gets with forceful activity with her hands such as cutting heavy food may not be a related to carpal tunnel syndrome all. Palpation of a left carpal joint and a right basal thumb joint reproduces some of this achy presenting symptomatology. Perhaps that weakness relates to achiness. I defer to primary care on that issue. We discussed that should she progress with the hand surgery team to carpal tunnel surgery, there is a possibility that some of her symptoms will be improved but I think it is unlikely that all of her symptoms with manual activity will not improve. I do not have a specific neurological diagnosis for thigh achiness with robust exertion. Except for the Tinel's sign at the wrists, neurological exam July 29, 2024 is essentially normal and in particular her strength is robustly normal. In this context, perhaps there is a metabolic issue causing the achiness which in turn causes the weakness and tiredness with robust exercise. Laboratory assays for which I do not have results that may sometimes relate to this include vitamin D and iron studies. She mentions that these are done by primary care and these have been unrevealing. Primary care mentions Lyme disease as potentially relating to some of her symptoms. I defer to primary care for checking Lyme titer. We discussed that, should symptoms worsen despite conclusion of consultation by hand surgery, and despite appropriate assessment and treatment for the achiness component in her hands, and should she continue to have symptoms that she and/or her primary care feels are neurological, I would be happy to reevaluate. Similarly, if lower extremity symptoms worsen and if there is continued suspicion for neurological involvement, I would be happy to reevaluate. She mentions she also has some forgetfulness and has had this for a while. I would be happy for a consultation focusing on this topic if she came with his significant other so I can understand there perspective. Medications per patient: Levothyroxine 150 mg, duloxetine 20 mg, montelukast 10 mg, estradiol patch, progesterone 100 mg, meloxicam 5 mg. >>>>>>>>>>>> PLAN Herminia Mikhail July 29, 2024 Follow-up as needed as detailed above. [email or web address] Not available 07/29/2024 12:18:52 Plan of Treatment Reminders Order Date Submit Date Provider Last Modified By Organization Details Last Modified Time Details Appointments None record ed. Lab None record ed. Referral None record ed. Procedures None record ed. Surgeries None record ed. Imaging None record ed. Medication Orders None record ed. Patient TargetsNo targets recorded. Patient Instructions Encounter Date Encounter Id Patient Instructions Last Modified By Organization Details Last Modified Time 07/29/2024 [id number] Discussion acros s issues of diagnoses and management and same day associated chart review and management greater than 50% greater than 60 minutes [email or web address] Not available 07/29/2024 12:19:56 Reason for Referral None Reported. Results Created Date Observation Date Name Description Value Unit Range Abnormal Flag Note LastModifiedBy Organization Detail LastModifiedTime 07/29/20 24 04/11/2011 elect octavia gram + nerve condu ction study No observ ation record ed. [email or web address] Not Available 2023 09:43:06 07/29/20 24 12/05/2018 MRI, cervi marry spine , w/wo contr ast No observ ation record ed. [email or web address] Not Available 2023 09:44:00 07/29/20 24 10/31/2018 MRI, brain , w/wo contr ast No observ ation record ed. [email or web address] Not Available 2023 09:45:12 07/29/20 24 04/01/2011 MRI, brain , w/o contr ast No observ ation record ed. [email or web address] Not Available 2023 09:45:48 Result Notes None recorded. Procedures Surgical History Date Name Laterality Status Provider Name and Address Organization Details Recorded Time 07/29/2024 DATA REVIEW completed Rafa Mancuso MD [address] [place] [address], [id number] 07/29/2024 12:16:11 Imaging Results None recorded. Procedure Notes None recorded. Medical Equipment None Reported. Allergies Allergen ID Allergen Name Allergen Category Reaction Reaction Severity Criticality Documentation Date Start Date Code Code System Note Provider Name and Address Organization Details Recorded Time 45 codeine medicatio n Not available Not available Not available 07/29/2024 2670 [facility] 11:07:28 Medications Name Sig Start Date Stop Date Status Note LastModified by Organization Details LastModified Time meloxicam 15 mg tablet TAKE 1 TABLET BY MOUTH EVERY DAY active Not Available Not Available No t Available clonazepam 0.5 mg tablet TAKE 1 TO 1.5 TABS BY MOUTH AT BEDTIME FOR 30 DAYS active Not Available Not Available No t Available penicillin V potassium 500 mg tablet TAKE 1 TABLET BY MOUTH 3 TIMES A DAY FOR 10 DAYS active Not Available Not Available Not Available estradiol 0.05 mg/24 hr semiweekly transdermal patch APPLY 1 PATCH TO SKIN 2 TIMES A WEEK FOR 84 DAYS active Not Available Not Available No t Available ciprofloxaci n 0.3 % eye drops INSTILL 1 DROP INTO EACH EYE THREE TIMES DAILY FOR 7 DAYS active Not Available Not Available No t Available cephalexin 500 mg capsule TAKE 1 CAPSULE BY MOUTH 3 TIMES PER DAY FOR 7 DAYS active Not Available Not Available No t Available levothyroxin e 150 mcg tablet TAKE 1 TABLET BY MOUTH EVERY DAY FOR 90 DAYS active Not Available Not Available No t Available montelukast 10 mg tablet TAKE 1 TABLET BY MOUTH EVERY EVENING 90 DAYS active Not Available Not Available No t Available mupirocin 2 % topical ointment APPLY 1 APPLICATION TOPICALLY TO AFFECTED AREA DAILY FOR 7 DAYS active Not Available Not Available N ot Available estradiol 0.01% (0.1 mg/gram) vaginal cream APPLY 1 GRAM VAGINALLY NIGHTLY X 2 WEEKS, THEN 2-3 X PER WEEK 30 DAYS DIRECTED active Not Available Not Available No t Available lamotrigine 100 mg tablet TAKE 1 TABLET BY MOUTH EVERY DAY FOR 90 DAYS active Not Available Not Available No t Available progesterone micronized 100 mg capsule TAKE 1 CAPSULE BY MOUTH EVERYDAY AT BEDTIME active Not Available Not Available No t Available estradiol 0.025 mg/24 hr semiweekly transdermal patch APPLY 1 PATCH TOPICALLY TWICE A WEEK FOR 84 DAYS active Not Available Not Available No t Available cyclobenzapr ine 5 mg tablet TAKE 1 TABLET BY MOUTH THREE TIMES A DAY FOR 5 DAYS active Not Available Not Available N ot Available duloxetine 20 mg capsule,russ yed release TAKE 1 CAPSULE BY MOUTH EVERY DAY active Not Available Not Available No t Available diclofenac 1 % topical gel APPLY TOPICALLY 4 TIMES A DAY NEEDED DIRECTED active Not Available Not Available Not Available Sodium Fluoride 5000 Dry Mouth 1.1 % dental paste USE ONCE DAILY, PREFERABLY AT BEDTIME, EXPECTORATE BUT DO NOT RINSE active Not Available Not Available No t Available Vitals Date Recorded Body height Body mass index (BMI) Body weight Respiratory rate Provider Name and Address Organization Details Last Updated DateTime 07/29/2024 172.72 cm 23.6 kg/m2 63536.82 g 12 /min [facility] 07/29/2024 11:07:11 Social History Question Answer Notes LastModified by Organizat ion Details LastModified Time Tobacco Smoking Status Never Smoker [facility] 07/29/2024 11:08:28 What Is Your Level Of Caffeine Consumption? Occasional Information not available 07/29/2024 What Is The Highest Grade Or Level Of School You Have Completed Or The Highest Degree You Have Received? [id number] [email or web address] Information not available 07/29/2024 Which Of Your Hands Is Dominant? Left Information not available 07/29/2024 What Is Your Relationship Status? Information not available 07/29/2024 Sex: Unknown Functional Status Question Answer Note LastModified by Organizat ion Details LastModified Time What is your level of alcohol consumption? Occasional Information not available 07/29/2024 Mental Status None recorded. Family History Nothing Reported. Medical History Condition Response Thyroid Problems Y Gynecological HistoryNo gynecological history recorded. 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 Health Concerns Section Related Observation LastModified by Organization Detai ls LastModified Time None Recorded Concern Status LastModified by Organization Details LastModified Time None Recorded Advance Directives Directive None Recorded Payers Insurance Date Sequence Insurance Name Policy Number Policy Alcala Covered Member ID Alcala Member ID Guarantor Name 08/07/2024 1 [place] [facility] [id number] Herminia Elizondo [id number] Herminia Elizondo Notes Date Note Type Note Provider Name and Address Organization Details Recorded Time 07/29/2024 text/html Herminia Elizondo presents for initial neurology consultation for assessment and management of ~nset of progressive left greater than right hand weakness and clumsiness; and ~summer 2023 onset thigh aching/weakness with robust exertion. She is unaccompanied; she is left-handed.>>>>>> >>>>>>July 29, 2024 presenting symptomotology:Abo nh 2 years ago, ~2021, she began noticing weakness and clumsiness with manual tasks, left side more prominently. Activities where she has noticed the symptoms include manipulating clasps of jewelry; texting; typing and cooking.With jewelry, she feels clumsy when she manipulates jewelry. With texting or typing, she makes a lot of mistakes. With cooking, if she is cutting something heavy, she feels weak, she feels that she needs more force than she did in previous times to cut that heavy piece of food.She has aching with some of the forceful manual activities where she feels weak. She has had pain in her hands with working for several years, certainly more than the 2 years she has felt weakness and clumsiness in her hands. The pain with working with her hands has not changed during these 2 years. She notes that there is a general achiness throughout her hands diffusely at the end of the day where she has been active with her hands. There is also pain in the wrists.Along with the intermittent aching diffusely in her hands, she sometimes has numbness in her hands, either in general at the end of an active day with her hands, or more particularly with bike riding. She does not wake with symptoms in her hands.She has had neck pain off and on with flares for several years with no clear change or correlation with the 2 years of worsening left greater than right hand weakness. The neck pain is actually been better recently since she started meloxicam for foot pain. That meloxicam has not helped the intermittent aching in her hands.In addition, starting summer 2023, she began having cramping on the tops of her thighs with activity. This cramping is accompanied by a feeling of needing more force to do robust exercise activities involving her lower extremities and a subsequent tired muscle feeling. Rafa Mancuso MD [address] [place], [place] [address], [address], [place] [facility] 07/29/2024 12:20:02 OBGyn Episode No OBEpisode recorded.
--- OUTSIDE RECORDS SUMMARY | 2025-09-11 18:39 | XMS_ITS | Encounter Summary ---
Author Organization [facility] Address [address] [place] [address] Phone Care Team Providers Care Industrial Editor Name Role Phone Aline Duffy MD Unavailable [phone] Aline Duffy MD Primary Care Provider + Deep Francois MD Primary Care Provider [phone] Encounter Details Date Type Department Care Team (Late st Contact Info) Description 06/17/2021 Transcribe Orders Virtual Department [address] [place] [address] Deep Francois MD [address] [place] [phone] [email or web address] Encounter for screening mammogram for malignant neoplasm [...] Primary documented in this encounter Care Teams Industrial Editor Relationship Specialty Start Date End Date Aline Duffy MD [address] [place] [phone] [email or web address] PCP - General Family Medicine 03/15/19 11/24/24 Deep Francois MD [address] [place] [phone] [email or web address] PCP - General Family Medicine 11/25/24 Aline Duffy MD [address] [place] [phone] [email or web address] Insurance Assigned Provider 12/30/23 documented as of this encounter Additional Source Comments The information contained in this document represents components of the legal health record. It is not the complete legal health record.[facility]
--- OUTSIDE RECORDS SUMMARY | 2025-09-11 18:39 | XMS_ITS | Encounter Summary ---
Author Organization [facility] Address [address] [place] [address] Phone Care Team Providers Care Social Worker Name Role Phone Aline Duffy MD Unavailable [phone] Aline Duffy MD Primary Care Provider + Deep Francois MD Primary Care Provider [phone] Encounter Details Date Type Department Care Team (Late st Contact Info) Description 06/21/2021 Transcribe Orders [facility] [address] [place] [address] [place] [address] Deep Francois MD [address] [place] [phone] Social History Tobacco Use Types Packs/Day Years [...] on filedocumented in this encounter Care Teams Social Worker Relationship Specialty Start Date End Date Aline Duffy MD [address] [place] [phone] PCP - General Family Medicine 03/15/19 11/24/24 Deep Francois MD [address] [place] [phone] [email or web address] PCP - General Family Medicine 11/25/24 Aline Duffy MD [address] [place] [phone] [email or web address] Insurance Assigned Provider 12/30/23 documented as of this encounter Additional Source Comments The information contained in this document represents components of the legal health record. It is not the complete legal health record.[facility]
--- OUTSIDE RECORDS SUMMARY | 2025-09-11 18:39 | XMS_ITS | Encounter Summary ---
Author Organization [facility] Address [address] [place] [address] Phone Care Team Providers Care Grain Inspector Name Role Phone Aline Duffy MD Unavailable [phone] Aline Duffy MD Primary Care Provider + Deep Francois MD Primary Care Provider + [phone] Encounter Details Date Type Department Care Team (Late st Contact Info) Description 06/29/2022 Transcribe Orders Virtual Department [address] [place] [address] Deep Francois MD [address] [place] [phone] Generalized abdominal or pelvic swelling or mass [...] generalized documented in this encounter Care Teams Grain Inspector Relationship Specialty Start Date End Date Aline Duffy MD [address] [place] [phone] PCP - General Family Medicine 03/15/19 11/24/24 Deep Francois MD [address] [place] [phone] [email or web address] PCP - General Family Medicine 11/25/24 Aline Duffy MD [address] [place] [phone] [email or web address] Insurance Assigned Provider 12/30/23 documented as of this encounter Additional Source Comments The information contained in this document represents components of the legal health record. It is not the complete legal health record.[facility]
--- OUTSIDE RECORDS SUMMARY | 2025-09-11 18:39 | XMS_ITS | Encounter Summary ---
Author Organization [facility] Address [address] [place] [phone] Phone Care Team Providers Care Sales Agent Insurance Name Role Phone Aline Duffy MD Unavailable Unknown, Unknown Primary Care Provider Aline Toribio MD Primary Care Provider + Deep Francois MD Primary Care Provider + [phone] Encounter Details Date Type Department Care Team (Late st Contact Info) Description 03/11/2019 Ancillary Orders Virtual Department [address] [place] [address] Aline Duffy MD [address] [place] [phone] [email or web address] Visit for screening mammogram Social History Tobacco [...] sensitivity of mammography. POS - CDHMAMA us Aline Duffy MD IMG MG EXAMS Final Re sult documented in this encounter Visit Diagnoses Diagnosis Visit for screening mammogram Visit for screening mammogram documented in this encounter Care Teams Sales Agent Insurance Relationship Specialty Start Date End Date Unknown, Unknown, MD PCP - General 03/14/19 03/14/19 Aline Duffy MD [address] [place] [phone] [email or web address] PCP - General Family Medicine 03/15/19 11/24/24 Deep Francois MD [address] [place] [phone] [email or web address] PCP - General Family Medicine 11/25/24 Aline Duffy MD [address] [place] [phone] [email or web address] Insurance Assigned Provider 12/30/23 documented as of this encounter Additional Source Comments The information contained in this document represents components of the legal health record. It is not the complete legal health record.[facility]
--- OUTSIDE RECORDS SUMMARY | 2025-09-11 18:39 | XMS_ITS | Encounter Summary ---
Author Organization [facility] Address [address] [place] [address] Phone Care Team Providers Care Street Photographer Name Role Phone Aline Duffy MD Unavailable [phone] Aline Duffy MD Primary Care Provider + Deep Francois MD Primary Care Provider [phone] Encounter Details Date Type Department Care Team (Late st Contact Info) Description 08/05/2020 Ancillary Orders Virtual Department [address] [place] [address] Aline Duffy MD [address] [place] [phone] DUB (dysfunctional uterine bleeding) Social History Tobacco [...] tract documented in this encounter Care Teams Street Photographer Relationship Specialty Start Date End Date Aline Duffy MD [address] [place] [phone] [email or web address] PCP - General Family Medicine 03/15/19 11/24/24 Deep Francois MD [address] [place] [phone] [email or web address] PCP - General Family Medicine 11/25/24 Aline Duffy MD [address] [place] [phone] [email or web address] Insurance Assigned Provider 12/30/23 documented as of this encounter Additional Source Comments The information contained in this document represents components of the legal health record. It is not the complete legal health record.[facility]
--- OUTSIDE RECORDS SUMMARY | 2025-09-11 18:39 | XMS_ITS | Clinical Summary ---
Author Organization [facility] Address [address] [place] [address] Phone Care Team Providers Care Paper Inserter Name Role Phone Aline Duffy MD Unavailable [phone] Deep Francois MD Primary Care Provider + [phone] Allergies Active Allergy Reactions Criticality Noted Date [...] EDT) TSH 3.14 0.27 - 4.20 uIU/mL [facility] Blood 03/15/2024 1:04 PM EDT 03/15/2024 1:09 PM EDT [facility] BKR ORDERABLES Final Result [facility] [address] [place], [place] [id number] * COLONOSCOPY FOR RESULT ENTRY ONLY (11/17/2020) Colonoscopy External us Historical Provider HEALTH MAINTENANCE Final Result from Last 3 Months or Most Recently Relevant to Health Maintenance Insurance [facility] [place] [address] [place] [address] [facility] [place] [address] [address] [place] [address] [place] [address] Care Teams Paper Inserter Relationship Specialty Start Date End Date Deep Francois MD [address] [place] [phone] [email or web address] PCP - General Family Medicine 11/25/24 Aline uDffy MD [address] [place] [phone] Insurance Assigned Provider 12/30/23 Additional Source Comments The information contained in this document represents components of the legal health record. It is not the complete legal health record.[facility]
--- OUTSIDE RECORDS SUMMARY | 2025-09-11 18:39 | XMS_ITS | Encounter Summary ---
Author Organization [facility] Address [address] [place] [address] Phone Care Team Providers Care Executive Asst Name Role Phone Aline Duffy MD Unavailable [phone] Aline Duffy MD Primary Care Provider + Deep Francois MD Primary Care Provider + [phone] Encounter Details Date Type Department Care Team (Late st Contact Info) Description 08/05/2020 Ancillary Orders Virtual Department [address] [place] [address] Aline Duffy MD [address] [place] [id number] DUB (dysfunctional uterine bleeding); Post-menopausal bleeding Social [...] on transabdominal or endovaginal technique. POS - [id number] Narrative 08/06/2020 1:13 PM EST COMPARISON: None [...] be visualized. Trace free fluid apparent in [id number]. IMPRESSION: Thickening of the endometrium for patient age without discrete massidentified. It is understood that the patient will be undergoingendometrial biopsy. Uterine fundal fibroid.. Ovaries not visualized ontransabdominal or endovaginal technique. POS - [id number] Aline Duffy MD [facility] US PELVIS Final Re sult documented in this encounter Visit Diagnoses Diagnosis DUB (dysfunctional uterine bleeding) Other disorder of menstruation and other abnormal bleeding from female genital tract Post-menopausal bleeding Postmenopausal bleeding DUB (dysfunctional uterine bleeding) Other disorder of menstruation and other abnormal bleeding from female genital tract Post-menopausal bleeding Postmenopausal bleeding documented in this encounter Care Teams Executive Asst Relationship Specialty Start Date End Date Aline Duffy MD [address] [place] [phone] [email or web address] PCP - General Family Medicine 03/15/19 11/24/24 Deep Francois MD [address] [place] [phone] [email or web address] PCP - General Family Medicine 11/25/24 Aline Duffy MD [address] [place] [phone] [email or web address] Insurance Assigned Provider 12/30/23 documented as of this encounter Additional Source Comments The information contained in this document represents components of the legal health record. It is not the complete legal health record.[facility]
--- OUTSIDE RECORDS SUMMARY | 2025-09-11 18:39 | XMS_ITS | Encounter Summary ---
Author Organization [facility] Address [address] [place] [address] Phone Care Team Providers Care Repair Clerk Name Role Phone Aline Duffy MD Unavailable [phone] Aline Duffy MD Primary Care Provider + Deep Francois MD Primary Care Provider + [phone] Encounter Details Date Type Department Care Team (Late st Contact Info) Description 06/20/2024 Procedure Pass [facility] [address] [place] [address] Social History Tobacco Use Types Packs/Day Years [...] on filedocumented in this encounter Care Teams Repair Clerk Relationship Specialty Start Date End Date Aline Duffy MD [address] [place] [phone] [email or web address] PCP - General Family Medicine 03/15/19 11/24/24 Deep Francois MD [address] [place] [phone] [email or web address] PCP - General Family Medicine 11/25/24 Aline Duffy MD [address] [place] [phone] [email or web address] Insurance Assigned Provider 12/30/23 documented as of this encounter Additional Source Comments The information contained in this document represents components of the legal health record. It is not the complete legal health record.[facility]
--- OUTSIDE RECORDS SUMMARY | 2025-09-11 18:40 | XMS_ITS | Encounter Summary ---
Author Organization [facility] Address [address] [place] [address] Phone Care Team Providers Care [employer] Registrar Name Role Phone Aline Duffy MD Unavailable [phone] Aline Duffy MD Primary Care Provider + Deep Francois MD Primary Care Provider + [phone] Encounter Details Date Type Department Care Team (Latest Contact Info) Description 06/22/2020 Transcribe Orders [facility] [address] [place] [address] Franca Richter PA-C [address] [facility] [address], [address] [place] [address] [email or web address] Constipation, unspecified constipation type (Primary Dx) Social [...] EDT) IgA 167 70 - 400 mg/dL [facility] Blood 06/22/2020 10:5 4 AM EDT 06/22/2020 11:05 AM EDT us Franca Richter PA-C LAB BLOOD BKR ORDERABLES Final Result [facility] [address] [place] [address] * Tissue transglutaminase IgA (06/22/2020 10:54 AM EDT) TTG IGA ANTIBODY <1.2 <4.0 (Negative) U/mL [facility] MED/[facility] Blood 06/22/2020 10:5 4 AM EDT 06/22/2020 11:05 AM EDT us Franca WEATHERS-C LAB BLOOD BKR ORDERABLES Final Result [facility] [address] [place] [address] documented in this encounter Visit Diagnoses Diagnosis Constipation, unspecified constipation type- Primary documented in this encounter Care Teams [employer] Registrar Relationship Specialty Start Date End Date Aline Duffy MD [address] [place] [phone] PCP - General Family Medicine 03/15/19 11/24/24 Deep Francois MD [address] [place] [phone] PCP - General Family Medicine 11/25/24 Aline Duffy MD [address] [place] [phone] Insurance Assigned Provider 12/30/23 documented as of this encounter Additional Source Comments The information contained in this document represents components of the legal health record. It is not the complete legal health record.[facility]
== END 2025-09-11 14:39 | disposition home or self-care (01) ==
LOC: HO.HPODS 14:31
PROVIDERS: PCP Family Medicine; Visit Provider Student in an Organized Health Care Education/Training Program
DX: L60.0 Ingrowing nail (principal); L60.9 Nail disorder, unspecified; L03.031 Cellulitis of right toe; M79.674 Pain in right toe(s)
CPT/HCPCS: 99213